=== PATIENT | female | born 1940 | race Caucasian/White ===

== ENCOUNTER 2020-01-31 16:16 | Inpatient (IN) | payer OTHER ==
[~2020-01-31] VITALS: Ht 152.4 cm; Wt 68.9 kg
[2020-01-31] MEDS ORDERED: DexAMETHasone SOD PHOS 10MG/1ML VIAL INJ IV ONE (16:45)
[2020-01-31 18:28] LABS: Monocytes # (auto) 0.1 10 ^3/uL (0-1.3)
[2020-01-31 18:30] LABS: Basophils # (auto) 0.2 10 ^3/uL (0-0.2); Basophils % (auto) 1.9 % (0.0-2.0); Eosinophils # (auto) 0.1 10 ^3/uL (0-0.8); Eosinophils % (auto) 1.1 % (0.0-7.0); Hematocrit 45.3 % (36.0-46.0); Hemoglobin 14.3 g/dL (12.2-16.2); Lymphocytes # (auto) 0.3 10 ^3/uL (0.4-5.4); Lymphocytes % (auto) 2.9 % (10.0-50.0); Mean Corpuscular Hemoglobin 38.1 pg (28.0-32.0); Mean Corpuscular Hgb Conc. 31.5 g/dL (32.0-36.0); Mean Corpuscular Volume 120.7 fL (80.0-100.0); Monocytes % (auto) 0.8 % (0.0-12.0); Neutrophils # (auto) 11.2 10 ^3/uL (1.6-8.6); Neutrophils % (auto) 93.3 % (37.0-80.0); Nucleated Red Blood Cells % 0.4 %; Platelet Count (auto) 173 10^3/uL (140-450); Red Blood Cells 3.75 10^6/uL (4.0-5.20)
[2020-01-31] MEDS ORDERED: ACETAMINOPHEN 325 MG TAB PO PRN (18:30)
[2020-01-31] MEDS ORDERED: ALBUTEROL SULF 2.5 MG/0.5ML(0.5%) NEB SOLN NEB PRN (18:30)
[2020-01-31] MEDS ORDERED: NITROGLYCERIN 0.4 MG SL TAB SL PRN (18:30)
[2020-01-31] MEDS ORDERED: HYDROcodone-ACET 5/325MG TAB PO PRN (18:30)
[2020-01-31] MEDS ORDERED: IPRATROPIUM BROM 0.5 MG/2.5ML INH SOL NEB PRN (18:30)
[2020-01-31] MEDS ORDERED: DOCUSATE SOD 100 MG CAP PO PRN (18:30)
[2020-01-31 18:32] LABS: Red Cell Distribution Width 22.4 % (11.8-14.3)
[2020-01-31 18:46] LABS: Albumin 2.8 g/dL (3.4-5.0); Anion Gap 6 (5-15); Blood Urea Nitrogen 14 mg/dL (7-18); Carbon Dioxide 22 mmol/L (21-32); Chloride 111 mmol/L (98-107); Glucose 79 mg/dL (74-106); Potassium 3.6 mmol/L (3.5-5.1); Sodium 139 mmol/L (136-145)
[2020-01-31 18:52] LABS: Alanine Aminotransferase 14 U/L (13-56); Alkaline Phosphatase 129 U/L (45-117); Aspartate Aminotransferase 26 U/L (15-37); BUN/Creatinine Ratio 20.9; Bilirubin, Total 1.4 mg/dL (0.2-1.0); CRP High Sensitivity 0.56 mg/dL (< 0.3); GFR African American 109 mL/min; GFR Non-African American 90 mL/min; Total Protein 6.7 g/dL (6.4-8.2)
--- NOTE | 2020-01-31 20:40 | NUR ---
pt arrived to unit via gurney, ambulated to bed with max assistance. alert and oriented x 3 able to answer all questions appropriately, no s/s of distress although pulse was elevated after ambulation bt went down with rest.
[2020-01-31 20:45] VITALS: BP 136/90
[2020-01-31 22:00] VITALS: BP 138/90
[2020-02-01 01:09] VITALS: BP 136/90
[2020-02-01 05:00] VITALS: BP 144/67
[2020-02-01 06:31] LABS: Mean Corpuscular Hemoglobin 37.9 pg (28.0-32.0); White Blood Cell 12.3 10^3/uL (4.4-10.8)
[2020-02-01 06:34] LABS: Hematocrit 40.9 % (36.0-46.0); Hemoglobin 13.1 g/dL (12.2-16.2); Mean Corpuscular Hgb Conc. 32.1 g/dL (32.0-36.0); Mean Corpuscular Volume 118.1 fL (80.0-100.0); Platelet Count (auto) 172 10^3/uL (140-450); Red Blood Cells 3.46 10^6/uL (4.0-5.20)
[2020-02-01 06:49] LABS: Potassium 3.8 mmol/L (3.5-5.1)
[2020-02-01 06:52] LABS: Basophils % (manual) 0 (0.0-2.0); Blast Cells 0; Metamyelocytes % 0; Myelocytes % 0; Promyelocytes % 0; Reactive Lymphocytes 0
[2020-02-01 07:04] LABS: BUN/Creatinine Ratio 23.5; Calcium 7.9 mg/dL (8.5-10.1)
--- NOTE | 2020-02-01 07:10 | NUR ---
Respiratory note: Assessed pt for prn medneb tx. HR 70, RR 16, SPO2 94% on 3lpm nasal cannula. Breath sounds clear/dim. Pt denies SOB at this time, no s/s of distress. Medneb tx not indicated at this time. Advised pt to call for RT if needed, pt verbalized understanding.
[2020-02-01 07:15] LABS: Band Neutrophils % (manual) 1; Eosinophils % (manual) 1 (0-7); Lymphocytes % (manual) 1 (10.0-50.0); Monocytes % (manual) 2 (0-12)
--- NOTE | 2020-02-01 07:40 | NUR ---
SHIFT OPENING NOTE RECEIVED PATIENT LYING IN BED COMFORTABLY SLEEPING BUT EASILY AWAKENED. NO C/O PAIN/ DISCOMFORT VOICED BY PATIENT AT THIS TIME. SHIFT ASSESSMENT DONE AND CHARTED. PLAN OF CARE, MEDICATIONS AND TREATMENTS DISCUSSED WITH PATIENT AND SHE VERBALIZED UNDERSTANDING. WILL CONTINUE TO MONITOR PATIENT.
[2020-02-01 09:00] VITALS: BP 145/77
[2020-02-01] MEDS: FUROSEMIDE 40 MG/4 ML VIAL IV SCH (10:00)
[2020-02-01] MEDS ORDERED: methylPREDNISolone SOD SUCC 125 MG/2 ML VL IV SCH (10:00)
--- NOTE | 2020-02-01 12:00 | NUR ---
WOUND CARE NOTE: IN TO SEE PATIENT AT THIS TIME PER WOUND CARE CONSULT REQUEST. PATIENT RECENTLY ADMITTED TO [facility] WITH DIAGNOSIS OF ACUTE RESPIRATORY DISTRESS, HX OF CHF. PATIENT HAS CURRENT CORINE SCORE OF 20. SHE CAN SELF TURN/REPOSITION SELF. PATIENT STATES THAT SHE SEES AN LUBBOCK EXHAUST MACHINE OPERATOR FOR HER WOUNDS, AND RECEIVES HOME HEALTH CARE DRESSING CHANGES. SHE CANNOT REMEMBER THE NAME OF HER EXHAUST MACHINE OPERATOR, BUT RECENTLY, HE AMPUTATED HER RIGHT # 1 TOE, AND PROVIDED SURGERY TO R MEDIAL ANKLE. RIGHT LATERAL ANKLE HAS LARGE VENOUS STASIS ULCER NOTED, COVERED WITH YELLOW FIBRIN SLOUGH. THERE ARE SUTURES NOTED TO RIGHT # 1 TOE AMPUTATION SITE, AND MEDIAL ANKLE SITE. ALL WOUNDS HAVE SOME NECROSIS. WOUND PHOTOS TAKEN FOR REFERENCE, DRESSINGS APPLIED, CONSISTING OF THERAHONEY, OPTIFOAM GENTLE DRESSINGS. PATIENT ALSO NOTED TO HAVE MILD INTERTRIGINOUS RASH NOTED TO PERINEUM. ANTIFUNGAL CLEAR OINTMENT APPLIED. RECOMMEND: EOD/PRN DRESSING CHANGE TO RIGHT FOOT/ANKLE WOUNDS, BID/PRN APPLICATION WITH ANTIFUNGAL CLEAR OINTMENT, SKIN/WOUND CARE PLAN, DIETARY CONSULT FOR WOUNDS, CONTINUED MONITORING BY WOUND CARE TEAM. PATIENT TO SEE HER EXHAUST MACHINE OPERATOR OUTPATIENT POST DISCHARGE. Addendum: 02/01/20 at 1912 by Marisela Banks RN Amended: Links added.
[2020-02-01 13:00] VITALS: BP 134/83
[2020-02-01] MEDS ORDERED: VANCOMYCIN PER PHARMACY 0 MG IV SCH (14:00)
[2020-02-01] MEDS ORDERED: VANCOMYCIN 1GM/250ML 250 ML IV ONE (14:00)
[2020-02-01] MEDS ORDERED: IOHEXOL 350 MG/ML 100ML IJ ONE (14:12)
[2020-02-01] MEDS ORDERED: ENOXAPARIN SOD 60 MG/0.6 ML SYRINGE SC ONE (14:15)
--- NOTE | 2020-02-01 14:30 | NUR ---
MD AT BEDSIDE DR. Varun SAENZ WAS IN TO SEE PATIENT AND MD LEFT NEW ORDERS.
[2020-02-01] MEDS ORDERED: ALEN1TAB32 PO (14:46)
[2020-02-01] MEDS ORDERED: LEVO75TA6 PO (14:46)
[2020-02-01] MEDS ORDERED: PRAV20TA3 PO (14:46)
[2020-02-01] MEDS ORDERED: DIGO0.12 PO (14:46)
[2020-02-01] MEDS ORDERED: FERR-20 PO (14:46)
[2020-02-01] MEDS ORDERED: POM PO (14:48)
[2020-02-01] MEDS ORDERED: VANCOMYCIN 750mg/250ml 250 ML IV SCH (15:00)
--- NOTE | 2020-02-01 15:30 | NUR ---
PHONED DR. FARIAS'S OFFICE BUT UNABLE TO CONTACT HIS OFFICE TO LEAVE A MESSAGE.
--- NOTE | 2020-02-01 15:35 | NUR ---
Dr. Feliz was in but patient in MRI at the time.
[2020-02-01] MEDS: POTASSIUM CHL 20 Meq TABLET PO SCH (16:51)
[2020-02-01 17:00] VITALS: BP 136/74
[2020-02-01 18:00] LABS: INR 3.09 (0.9-1.15); Partial Thromboplastin Time 36.7 sec (23.64-32.05)
--- NOTE | 2020-02-01 18:47 | NUR ---
RT NOTE PT WAS SEEN BY RT FOR PRN HHN TX. HR 69, RR 16, BS CLEAR/DIM, POX 96% ON 1L NASAL CANNULA. NO PRN TX INDICATED AT THIS TIME. CONT ORDERED Addendum: 02/01/20 at 1952 by Mare Bejarano RT Amended: Links added.
[2020-02-01] MEDS ORDERED: phytonadione 5 MG in SODIUM CHL 0.9% 50 ML IV ONE (21:00)
--- NOTE | 2020-02-01 21:00 | NUR ---
spoke with Dr. Diaz who wanted update on pt labs r/t possible angiogram in am. pt placed npo status after midnight, vit k 5mg iv, and am pt/inr lab draw ordered per MD request. Dr. Diaz states he will be in to talk to pt about procedure before consent prepared. Pt is aware that he will be in. Also paged Dr. Briscoe r/t continuation of pt home meds. per am nurse. awaiting to call to confirm before writing orders.
[2020-02-01 21:59] VITALS: BP 145/87
[2020-02-01] MEDS: CEFEPIME 1 GM in SODIUM CHL 0.9% 50 ML IV SCH (22:24)
[2020-02-02] VITALS (37 sets, daily range): BP systolic 76–149; BP diastolic 42–94
[2020-02-02 05:54] LABS: Eosinophils # (auto) 0.1 10 ^3/uL (0-0.8); Eosinophils % (auto) 0.6 % (0.0-7.0); Monocytes # (auto) 0.3 10 ^3/uL (0-1.3); Neutrophils # (auto) 12.4 10 ^3/uL (1.6-8.6)
[2020-02-02 05:56] LABS: Basophils # (auto) 0.1 10 ^3/uL (0-0.2); Basophils % (auto) 0.7 % (0.0-2.0); Hematocrit 42.7 % (36.0-46.0); Hemoglobin 13.7 g/dL (12.2-16.2); Lymphocytes # (auto) 0.4 10 ^3/uL (0.4-5.4); Lymphocytes % (auto) 2.7 % (10.0-50.0); Mean Corpuscular Hemoglobin 37.7 pg (28.0-32.0); Mean Corpuscular Volume 117.8 fL (80.0-100.0); Platelet Count (auto) 173 10^3/uL (140-450); Red Blood Cells 3.63 10^6/uL (4.0-5.20); White Blood Cell 13.2 10^3/uL (4.4-10.8)
[2020-02-02 06:09] LABS: INR 1.62 (0.9-1.15)
[2020-02-02 06:11] LABS: BUN/Creatinine Ratio 28.6; Potassium 3.5 mmol/L (3.5-5.1)
--- NOTE | 2020-02-02 07:30 | NUR ---
Opening Shift Note Assumed care of patient, awake and alert. No S/S of distress/SOB or pain. Instructed on POC and to call for assist PRN, will continue to monitor for changes Q1hr and PRN.
[2020-02-02] MEDS ORDERED: PANTOPRAZOLE 40 MG TAB PO SCH (10:00)
[2020-02-02] MEDS: CEFEPIME 1 GM in SODIUM CHL 0.9% 50 ML IV SCH ×2 (10:09→22:17)
[2020-02-02] MEDS: FUROSEMIDE 40 MG/4 ML VIAL IV SCH (10:11)
[2020-02-02] MEDS: POTASSIUM CHL 20 Meq TABLET PO SCH (10:11)
[2020-02-02 11:28] LABS: INR 1.36 (0.9-1.15)
--- NOTE | 2020-02-02 12:38 | NUR ---
Nutrition Consult/assessment Notes please see attached link for complete assessment Est Energy needs BW 56 [id number] kcals (25-30kcal/kgBW), Est Protein needs: 56-72 gms/day (1.0-1.3gm/kgBW r/t wounds). Will continue to monitor and reassess prn. Addendum: 02/02/20 at [address] Amended: Links added.
--- NOTE | 2020-02-02 13:08 | NUR ---
IV insertion IV access obtained, via clean sterile technique by inserting 22 gauge catheter at right forearm after 1 attempt. IV secured properly. No trauma to site. Patient tolerated well. Original iv was dislodged by patient on accident. catheter is intact and bleeding has stopped.
--- NOTE | 2020-02-02 13:20 | NUR ---
Patient off unit to supervisor laboratory animal facility. patient is relaxed and calm. no pain reported.
[2020-02-02] MEDS ORDERED: IODIXANOL 320MG/ML 100ML BTL IV ONE (13:56)
[2020-02-02] MEDS ORDERED: LIDOCAINE 2%HCL (LOCAL ANESTH.) INJ 20ML MDV ONE ×2 (13:56→19:39)
[2020-02-02] MEDS ORDERED: MIDAZOLAM HCL 1MG/1ML-2 ML VIAL ONE (14:15)
[2020-02-02] MEDS ORDERED: ANGIOMAX 250 MG VIAL IV ONE (14:15)
[2020-02-02] MEDS ORDERED: SODIUM CHL 0.9% 0 ML ONE (14:15)
[2020-02-02] MEDS ORDERED: HEPARIN SODIUM (PORCINE) 5000 UNITS/ML 1ML VIAL ONE (14:16)
[2020-02-02] MEDS ORDERED: fentaNYL CITRATE 100 MCG/2 ML VL ONE (14:16)
[2020-02-02] MEDS ORDERED: VERAPAMIL 2.5MG/ML INJ 2ML VIAL IV ONE (14:16)
[2020-02-02] MEDS ORDERED: diphenhdrAMINE HCL 50 MG/1 ML VL ONE (14:22)
[2020-02-02] MEDS ORDERED: HYDROmorphone HCL 2 MG/ML VL ONE (14:46)
[2020-02-02] MEDS ORDERED: NOREPINEPHRINE 8 MG/250ML KIT 250 ML IV ONE (14:53)
[2020-02-02] MEDS ORDERED: DOPamine 1600MCG/ML D5W 0 ML IV ONE (14:53)
[2020-02-02] MEDS ORDERED: EPINEPHrine HCL 1 MG/10 ML SYRG ONE (14:59)
[2020-02-02] MEDS ORDERED: IOHEXOL 350 MG/ML 100ML IJ ONE (15:07)
--- NOTE | 2020-02-02 15:50 | NUR ---
report given to [facility] in the lab[facility] egg producing farm. patient is being transferred to ICU for observation.
[2020-02-02 16:00] LABS: Hematocrit 40.4 % (36.0-46.0); Hemoglobin 12.8 g/dL (12.2-16.2); Mean Corpuscular Hgb Conc. 31.7 g/dL (32.0-36.0)
[2020-02-02] MEDS: ONDANSETRON HCL 4 MG/2 ML VIAL IV PRN ×3 (16:00→23:15)
[2020-02-02 16:01] LABS: Mean Corpuscular Hemoglobin 37.2 pg (28.0-32.0); Mean Corpuscular Volume 117.3 fL (80.0-100.0); Platelet Count (auto) 320 10^3/uL (140-450); Red Blood Cells 3.44 10^6/uL (4.0-5.20); White Blood Cell 25.4 10^3/uL (4.4-10.8)
[2020-02-02 16:03] LABS: Band Neutrophils % (manual) 0; Basophils % (manual) 0 (0.0-2.0); Blast Cells 0; Metamyelocytes % 0; Myelocytes % 0; Promyelocytes % 0; Reactive Lymphocytes 0; Red Cell Distribution Width 21.7 % (11.8-14.3)
[2020-02-02] MEDS ORDERED: DIGOXIN (250MCG/ML) 2 ML AMPULE IV ONE (16:15)
[2020-02-02 16:21] LABS: BUN/Creatinine Ratio 21.2; Calcium 7.3 mg/dL (8.5-10.1); Potassium 3.2 mmol/L (3.5-5.1)
[2020-02-02] MEDS ORDERED: PHENYLEPHRINE IV 250 ML IV ONE (16:38)
[2020-02-02] MEDS ORDERED: ETOMIDATE (2MG/ML) 20ML VIAL IV ONE (16:50)
[2020-02-02] MEDS ORDERED: SUCCINYLCHOLINE CHLORIDE 20 MG/ML 10ML VIAL IV ONE (16:50)
--- NOTE | 2020-02-02 16:55 | NUR ---
INTUBATED IN ONLINE TUTOR ICU PT INTUBATED BY SOFT SUGAR OPERATOR HEAD STUDENT WITH DR. MA AT BEDSIDE. INTUBATED WITH ETT 8.0 AT 22CM, SECURED WITH HOLISTER. PLACED ON CARESCAPE VENT V18 PLUGGED INTO RED OUTLET, ON SETTINGS: AC, RR 14, VT 400, PEEP +5, FIO2 30%. ALARMS SET AND AUDIBLE. PT SEDATED, TOLERATING VENT WELL, NO S/S OF DISTRESS. RN AT BEDSIDE. WILL ENDORSE PT CARE TO NOC SHIFT RT.
[2020-02-02] MEDS: NOREPINEPHRINE 8 MG/250ML KIT 250 ML IV SCH (16:58)
[2020-02-02] MEDS ORDERED: PROPOFOL 10 MG/ML 20 ML IV ONE (17:15)
[2020-02-02] MEDS ORDERED: PROPOFOL 100 ML IV ONE (17:55)
[2020-02-02] MEDS ORDERED: PIPERACILLIN-TAZOB 2.25GM 50 ML IV ONE (18:00)
[2020-02-02 18:18] LABS: Eosinophils % (manual) 1 (0-7); Lymphocytes % (manual) 3 (10.0-50.0); Monocytes % (manual) 3 (0-12)
--- NOTE | 2020-02-02 18:27 | NUR ---
PATIENT ARRIVED FROM TUNG NUT GROWER, INTUBATED, RECEIVING 2ND UNIT OF PRBC AND 2 VASOPRESSORS INFUSING THROUGH LEFT TLC GROIN CONNECTED TO BEDSIDE MONITOR AND BEDSIDE VENTILATOR. PATIENT DUSKY IN COLOR, INCREASED SEDATION PATIENT REACHING FOR ET TUBE.
--- NOTE | 2020-02-02 19:15 | NUR ---
DR. FARIAS AT BEDSIDE - ORDERS FOR 1 MORE UNIT PRBC
[2020-02-02] MEDS: PHENYLEPHRINE IV 250 ML IV SCH ×2 (19:25→21:58)
[2020-02-02] MEDS: POTASSIUM CHL 20MEQ/100ML 100 ML IV SCH ×2 (19:30→21:49)
--- NOTE | 2020-02-02 19:40 | NUR ---
DR. SAENZ AT BEDSIDE
--- NOTE | 2020-02-02 19:40 | NUR ---
TRANSFERRED TO [facility] ARCHITECT
--- NOTE | 2020-02-02 19:50 | NUR ---
RT NOTE PT TRANSPORTED TO [facility] FOR PROCEDURE. PT BAGGED DURING TRANSPORT WITHOUT INCIDENT. PT PLACED ON ORE TRIMMER VENT ON SETTINGS OF AC 18, 400, +5 30%. DURING PROCEDURE PT FIO2 WAS TITRATED UP TO 50% DUE TO LOW PERFUSION. WHEN PROCEDURE WAS COMPLETED, PT WAS TRANSPORTED BACK, BAGGED IN ROUTE WITHOUT INCIDENT AND PLACED BACK ON ICU VENT IN ROOM 102. PT FIO2 TITRATED BACK DOWN TO 30%. PT BACK IN ICU 102 ON SAME SETTINGS AT 2115.
--- NOTE | 2020-02-02 19:58 | NUR ---
FAMILY MEETING WITH DR Rachele SAENZ AND PATIENTS SON AND DAUGHTER. FAMILY WANTS INTERVENTIONAL RADIOLOGIST TO PROCEED WITH TRYING TO STOPPING THE BLEEDING. POST PROCEDURE FAMILY DISCUSS MAKING PATIENT A CHEMICAL CODE.
[2020-02-02] MEDS ORDERED: SODIUM BICARBONATE 8.4 % INJ 50ML VIAL IV ONE (20:30)
--- NOTE | 2020-02-02 21:15 | NUR ---
RECEIVED FROM AUTISTIC TEACHER: RIGHT GROIN ANGIO SITE, CDI WITH TEGADERM, NO ECCHYMOSIS, NO HEMATOMA, NO ACTIVE BLEEDING NOTED. REMAINS INTUBATED, AND SEDATED. BLOOD TRANSFUSING. AFIB WITH RVR, HR 140+. SBP 100+ ON JATINDER AND LEVO GTT
--- NOTE | 2020-02-02 21:46 | NUR ---
3RD PRBC FINISHED TRANSFUSING
[2020-02-02] MEDS: PROPOFOL 100 ML IV SCH (21:53)
[2020-02-02] MEDS: VASOPRESSIN 50 UNITS in D5W 5% 247.5 ML IV SCH (21:59)
--- NOTE | 2020-02-02 22:45 | NUR ---
PAGED DR. FARIAS TO NOTIFY ABOUT AFIB WITH RVR
--- NOTE | 2020-02-02 22:45 | NUR ---
ASKED LAB TO DRAW PATIENT D/T DEPENDENCE ON VASOPRESSOR INFUSION
[2020-02-02 23:07] LABS: Hematocrit 41.2 % (36.0-46.0); Mean Corpuscular Hemoglobin 31.4 pg (28.0-32.0); Mean Corpuscular Hgb Conc. 31.5 g/dL (32.0-36.0); Mean Corpuscular Volume 99.7 fL (80.0-100.0); Platelet Count (auto) 246 10^3/uL (140-450); Red Blood Cells 4.13 10^6/uL (4.0-5.20)
--- NOTE | 2020-02-02 23:13 | NUR ---
TEMP 100.3F ORALLY - REMOVED BLANKETS, PLACED COOL WASH RAG ON PATIENT
[2020-02-02 23:16] LABS: Red Cell Distribution Width 30.1 % (11.8-14.3)
[2020-02-02 23:19] LABS: BUN/Creatinine Ratio 17.6; Calcium 7.2 mg/dL (8.5-10.1); Potassium 4.4 mmol/L (3.5-5.1); White Blood Cell 36.4 10^3/uL (4.4-10.8)
[2020-02-02 23:20] LABS: Basophils % (manual) 0 (0.0-2.0); Blast Cells 0; Eosinophils % (manual) 0 (0-7); Promyelocytes % 0; Reactive Lymphocytes 0
--- NOTE | 2020-02-02 23:30 | NUR ---
RIGHT GROIN ANGIO SITE: SITE CDI, TEGADERM INTACT, NO ECCHYMOSIS, NO HEMATOMA, NO ACTIVE BLEEDING NOTED
[2020-02-02 23:31] LABS: INR 1.84 (0.9-1.15)
--- NOTE | 2020-02-02 23:40 | NUR ---
SPOKE WITH DR. GRAVES: NOTIFIED ABOUT LAB RESULTS AND AFIB WITH RVR. ADVISED TO ATTEMPT TO GET AHOLD OF DR. FARIAS, BUT IF NO RETURN CALL MAY START, AMIODARONE PER PROTOCOL. ORDERS READBACK AND VERIFIED.
--- NOTE | 2020-02-02 23:43 | NUR ---
PAGED DR. FARIAS
--- NOTE | 2020-02-02 23:46 | NUR ---
DR GRAVES CALLED [facility]: WHILE WAITING FOR CARDIOLOGY TO CALL BACK, GIVE 0.25 MG DIGOXIN IVP X1 BEFORE STARTING AMIODARONE GTT. ORDERS READBACK AND VERIFIED
[2020-02-02] MEDS ORDERED: DIGOXIN (250MCG/ML) 2 ML AMPULE ONE (23:49)
[2020-02-02 23:52] LABS: Band Neutrophils % (manual) 1; Lymphocytes % (manual) 6 (10.0-50.0); Metamyelocytes % 1; Monocytes % (manual) 2 (0-12); Myelocytes % 1
--- NOTE | 2020-02-02 23:53 | NUR ---
0.25 MG OF DIGOXIN GIVEN IVP - DOSE VERIFIED WITH TAE GOODMAN
[2020-02-03] VITALS (109 sets, daily range): BP systolic 75–134; BP diastolic 42–83
[2020-02-03] MEDS ORDERED: DIGOXIN (250MCG/ML) 2 ML AMPULE IV ONE
[2020-02-03] MEDS ORDERED: AMIODARONE HCL 150 MG in D5W 5% 100 ML IV ONE (00:15)
[2020-02-03] MEDS ORDERED: AMIODARONE 450mg/250ml AE 250 ML IV SCH (00:20)
[2020-02-03] MEDS ORDERED: AMIODARONE 450mg/250ml AE 250 ML IV ONE (00:23)
[2020-02-03] MEDS ORDERED: AMIODARONE HCL (50 MG/ ML) 3 ML VIAL IV ONE (00:23)
--- NOTE | 2020-02-03 00:37 | NUR ---
AMIO BOLUS STARTED - HR REMAINS AFIB WITH RVR UP TO 180
--- NOTE | 2020-02-03 00:53 | NUR ---
AMIO GTT STARTED
--- NOTE | 2020-02-03 01:00 | NUR ---
TEMP 102.5F ORALLY - ICE PACKS APPLIED TO NECK, BILATERAL AXILLA, RIGHT GROIN, AND FAN PLACED OSCILLATING IN ROOM
--- NOTE | 2020-02-03 01:00 | NUR ---
SPOKE WITH DR. FARIAS: ORDERS FOR 2.5 MG IV VITAMIN K. ORDERS READBACK AND VERIFIED
[2020-02-03] MEDS: VANCOMYCIN 750mg/250ml 250 ML IV SCH ×2 (01:06→19:35)
--- NOTE | 2020-02-03 01:13 | NUR ---
RIGHT GROIN ANGIO SITE: TEGADERM INTACT. NO HEMATOMA, NO ECCHYMOSIS, NO ACTIVE BLEEDING NOTED.
--- NOTE | 2020-02-03 01:14 | NUR ---
HR NOW 90-120s, REMAINS AFIB
[2020-02-03] MEDS: PHENYLEPHRINE IV 250 ML IV SCH ×7 (01:20→19:51)
[2020-02-03] MEDS ORDERED: phytonadione 2.5 MG in SODIUM CHL 0.9% 50 ML IV ONE (02:00)
--- NOTE | 2020-02-03 02:01 | NUR ---
TEMP DOWN TO 99.9F ORALLY
[2020-02-03] MEDS ORDERED: phytonadione 1 ML ONE (02:04)
[2020-02-03] MEDS: PROPOFOL 100 ML IV SCH ×2 (02:41→07:07)
--- NOTE | 2020-02-03 03:31 | NUR ---
TEMP REMAINS 100.0F
--- NOTE | 2020-02-03 03:31 | NUR ---
14 FR NGT PLACED TO LEFT NARE: AIR BOLUS VERIFIED BY TAE GOODMAN
[2020-02-03 04:50] LABS: Basophils # (auto) 0.1 10 ^3/uL (0-0.2); Basophils % (auto) 0.4 % (0.0-2.0); Eosinophils # (auto) 0 10 ^3/uL (0-0.8); Eosinophils % (auto) 0.1 % (0.0-7.0); Hematocrit 31.6 % (36.0-46.0); Hemoglobin 10.4 g/dL (12.2-16.2); Lymphocytes % (auto) 4.5 % (10.0-50.0); Mean Corpuscular Hemoglobin 32.6 pg (28.0-32.0); Mean Corpuscular Volume 98.7 fL (80.0-100.0); Monocytes % (auto) 4.4 % (0.0-12.0); Neutrophils # (auto) 21.1 10 ^3/uL (1.6-8.6); Neutrophils % (auto) 90.6 % (37.0-80.0); Nucleated Red Blood Cells % 0.6 %; Platelet Count (auto) 134 10^3/uL (140-450); White Blood Cell 23.3 10^3/uL (4.4-10.8)
[2020-02-03 04:53] LABS: Potassium 4.1 mmol/L (3.5-5.1)
[2020-02-03 04:54] LABS: Red Cell Distribution Width 30.9 % (11.8-14.3)
[2020-02-03 04:58] LABS: BUN/Creatinine Ratio 20.3; Calcium 6.1 mg/dL (8.5-10.1)
--- NOTE | 2020-02-03 05:00 | NUR ---
PARTIAL LINEN CHANGE COMPLETED, PAMELA CARE, STEPHENS CARE, AND ORAL CARE
--- NOTE | 2020-02-03 05:40 | NUR ---
BLOOD PRESSURE DROPPED FROM 100s TO 80s - UNABLE TO TELL IF ABDOMEN IS LARGER OR FIRMER THAN PREVIOUSLY - WILL DRAW STAT CBC TO RECHECK - INCREASED JATINDER GTT AND STARTED LEVO GTT
--- NOTE | 2020-02-03 05:55 | NUR ---
SACRUM ASSESSMENT- BLANCHABLE ERYTHEMA TO SACRUM - PLACED GENTLE OPTIFOAM
--- NOTE | 2020-02-03 06:00 | NUR ---
AMIODARONE STOPPED - HR 60s
[2020-02-03 06:10] LABS: Hemoglobin 10.2 g/dL (12.2-16.2); Mean Corpuscular Hemoglobin 31.8 pg (28.0-32.0); Mean Corpuscular Hgb Conc. 31.9 g/dL (32.0-36.0); Mean Corpuscular Volume 99.7 fL (80.0-100.0); Platelet Count (auto) 159 10^3/uL (140-450); Red Blood Cells 3.21 10^6/uL (4.0-5.20)
[2020-02-03 06:13] LABS: Red Cell Distribution Width 31.2 % (11.8-14.3)
[2020-02-03 06:15] LABS: Basophils % (manual) 0 (0.0-2.0); Blast Cells 0; Eosinophils % (manual) 0 (0-7); Metamyelocytes % 0; Myelocytes % 0; Promyelocytes % 0; Reactive Lymphocytes 0
[2020-02-03] MEDS: AMIODARONE 450mg/250ml AE 250 ML IV SCH ×2 (06:20→21:20)
[2020-02-03 06:29] LABS: Band Neutrophils % (manual) 1; Lymphocytes % (manual) 4 (10.0-50.0); Monocytes % (manual) 1 (0-12)
--- NOTE | 2020-02-03 06:29 | NUR ---
BLOOD PRESSURE STABILIZING AT THIS TIME
[2020-02-03 07:24] LABS: INR 1.67 (0.9-1.15); Partial Thromboplastin Time 35.8 sec (23.0-31.2)
--- NOTE | 2020-02-03 07:44 | NUR ---
REPORT AND CARE ENDORSED TO TAE SAM
--- NOTE | 2020-02-03 07:45 | NUR ---
REPORT RECEIVED ASSUMING CARE, PATIENT LYING IN BED INTUBATED/SEDATED VS STABLE
[2020-02-03] MEDS: POTASSIUM CHL 20 Meq TABLET PO SCH (10:00)
[2020-02-03] MEDS ORDERED: FUROSEMIDE 20 MG/2 ML VIAL IV ONE (10:00)
--- NOTE | 2020-02-03 10:15 | NUR ---
TEMP 100.2 RECTALLY, COOLING MEASURES PROVIDED
[2020-02-03] MEDS: CEFEPIME 1 GM in SODIUM CHL 0.9% 50 ML IV SCH ×2 (10:27→21:49)
[2020-02-03] MEDS: PANTOPRAZOLE 40 MG/10 ML VIAL INJ IV SCH (10:34)
--- NOTE | 2020-02-03 10:44 | NUR ---
JUANIX GIVEN PER DR FARIAS COMMUNICATION ORDER FOR 20 MG IVP ONCE FOR UOP LESS THAN 40 X 2 HRS. Addendum: 02/03/20 at 1302 by Balta Saravia RN LESS THAN 40 PER HOUR X 2 HRS
--- NOTE | 2020-02-03 12:27 | NUR ---
Nutrition Assessment/Consult Notes Please refer to link for full assessment notes. Est Energy needs: 5207-0013 (25-30 kcal/kgBW) d/t pt respiratory distress Est Protein needs: 71-95 gms/day (1.2-1.6 gm/kgBW) d/t pt respiratory distress Will continue to monitor and reassess prn. Addendum: 02/03/20 at [address] Amended: Links added.
--- NOTE | 2020-02-03 12:54 | NUR ---
DR FARIAS AT BEDSIDE, DR CORDERO RN GAVE LASIX PER HIS COMMUNICATION ORDER AND AWARE OF URINE OUTPUT. ASSESSED PATIENT AND SPOKE WITH DAUGHTER JESS ON PHONE REGARDING PATIENT CONDITION.
--- NOTE | 2020-02-03 12:55 | NUR ---
PROTONIX CHANGED TO IV PER PROTOCOL FROM PO DUE TO INABILITY TO CRUSH PROTONIX PILL DUE TO EXTENDED RELEASE
[2020-02-03] MEDS ORDERED: PROPOFOL 100 ML IV SCH (13:45)
[2020-02-03 18:46] LABS: Hematocrit 29.1 % (36.0-46.0); Hemoglobin 9.5 g/dL (12.2-16.2); Mean Corpuscular Hemoglobin 32.5 pg (28.0-32.0); Mean Corpuscular Hgb Conc. 32.6 g/dL (32.0-36.0); Mean Corpuscular Volume 99.7 fL (80.0-100.0); Platelet Count (auto) 158 10^3/uL (140-450); Red Blood Cells 2.92 10^6/uL (4.0-5.20); White Blood Cell 25.4 10^3/uL (4.4-10.8)
[2020-02-03 18:49] LABS: Red Cell Distribution Width 31.3 % (11.8-14.3)
[2020-02-03 18:51] LABS: Basophils % (manual) 0 (0.0-2.0); Blast Cells 0; Eosinophils % (manual) 0 (0-7); Metamyelocytes % 0; Myelocytes % 0; Promyelocytes % 0; Reactive Lymphocytes 0
[2020-02-03 19:11] LABS: Band Neutrophils % (manual) 1; Lymphocytes % (manual) 2 (10.0-50.0); Monocytes % (manual) 1 (0-12)
--- NOTE | 2020-02-03 19:11 | NUR ---
SPOKE WITH DR FARIAS, DR CORDERO HGB/HCT. DR CORDERO URINE OUTPUT FOR 12 HR SHIFT.
[2020-02-03] MEDS: NOREPINEPHRINE 8 MG/250ML KIT 250 ML IV SCH (19:28)
[2020-02-03] MEDS: VASOPRESSIN 50 UNITS in D5W 5% 247.5 ML IV SCH (19:30)
[2020-02-03] MEDS: FUROSEMIDE 20 MG/2 ML VIAL IV SCH (19:36)
[2020-02-03] MEDS: MIDAZOLAM DRIP 50 mg/50mL 50 ML IV SCH (19:37)
--- NOTE | 2020-02-03 19:45 | NUR ---
TEMP 100.2F - FAN ON OSCILLATING IN ROOM, PACK BEHIND NECK
[2020-02-03 21:17] LABS: Urine WBC None Seen /hpf (0 - 5)
--- NOTE | 2020-02-03 21:30 | NUR ---
TEMP REMAINS REMAINS 100.2F DESPITE COOLING MEASURES - TYLENOL PRN GIVEN
[2020-02-03 21:35] LABS: Urine Bacteria NONE SEEN /hpf (None Seen); Urine Blood Negative /uL (Negative); Urine Specific Gravity 1.009 (1.001-1.035)
--- NOTE | 2020-02-03 21:57 | NUR ---
SPOKE WITH PATIENT'S SON: AFTER PASSWORD VERIFIED, UPDATED ON PATIENT'S STATUS. PER SON, WHEN THE PATIENT SLEEPS AT HOME THEY NOTE THAT SHE HAS UNCONTROLLED MOVEMENTS OF HER LOWER EXTREMITIES THAT ARE SOME TIMES "VIOLENT" AND APPEAR THAT SHE IS RUNNING A MARATHON
--- NOTE | 2020-02-03 22:00 | NUR ---
REMOVED SCDs D/T PATIENT CONSTANTLY MOVING LEGS, AND REPORT FROM SON
[2020-02-03] MEDS: fentaNYL Drip 2500mCg/250mlNS 250 ML IV SCH (22:12)
--- NOTE | 2020-02-03 22:34 | NUR ---
TEMP NOW 99.5F RECTALLY
[2020-02-04] VITALS (104 sets, daily range): BP systolic 85–123; BP diastolic 46–71
[2020-02-04] MEDS: PHENYLEPHRINE IV 250 ML IV SCH ×3 (00:01→09:23)
--- NOTE | 2020-02-04 01:30 | NUR ---
WOUND CARE: RIGHT MEDIAL ANKLE: REMOVED PREVIOUS DRESSING, MINIMAL DRAINAGE. WOUND BED WITH YELLOW SLOUGH, SURROUNDING SKIN ERYTHEMATOUS. SUTURES PRESENT. CLEANSED WITH WOUND CLEANSING SPRAY, PAT DRY WITH STERILE GAUZE, PLACED THERAHONEY GAUZE, AND COVERED WITH OPTIFOAM.SECURED WITH KERLIX AND STRETCH NETTING. RIGHT LATERAL ANKLE: REMOVED PREVIOUS DRESSING, MINIMAL DRAINING, WOUND BED WITH YELLOW SLOUGH AND AREAS OF ESCHAR. CLEANSED WOUND WITH WOUND CLEANSER SPRAY, PAT DRY WITH STERILE GAUZE, APPLIED THERAHONEY GAUZE, COVERED WITH OPTIFOAM. SECURED WITH KERLIX AND STRETCH NETTING. RIGHT PINKY TOE AMPUTATION: REMOVED PREVIOUS DRESSING, MINIMAL DRAINAGE. SUTURES PRESENT BUT WOUND OPEN, WITH SLOUGH AND AREAS OF ESCHAR. WOUND PHOTO TAKEN. CLEANSED WITH WOUND CLEANSER SPRAY, PAT DRY WITH STERILE GAUZE, APPLIED WITH THERAHONEY GAUZE, COVERED WITH TELFA.SECURED WITH KERLIX AND STRETCH NETTING. SACRUM/COCCYX: BLANCHABLE ERYTHEMA TO SACRUM/COCCYX. SKIN INTACT. WOUND PHOTO TAKEN. RE-CONSULTED WOUND CARE. PLACED GENTLE OPTIFOAM. PATIENT TOLERATED WOUND CARE WELL, DOES TEND TO PULL RIGHT FOOT INTO CENTER. NO SOURAV BOOTS AVAILABLE. WILL ATTEMPT TO FLOAT HEEL/FOOT OFF OF BED.
--- NOTE | 2020-02-04 02:11 | NUR ---
BED BATH WITH CHG WIPES, PAMELA CARE, STEPHENS CARE, ORAL CARE, AND PARTIAL LINEN CHANGE COMPLETED
[2020-02-04] MEDS: FUROSEMIDE 20 MG/2 ML VIAL IV SCH ×2 (04:16→17:58)
[2020-02-04 04:57] LABS: BUN/Creatinine Ratio 27.7; Calcium 6.1 mg/dL (8.5-10.1); Magnesium 1.8 mg/dL (1.6-2.6); Potassium 3.7 mmol/L (3.5-5.1)
[2020-02-04 04:59] LABS: Hematocrit 27.5 % (36.0-46.0); Hemoglobin 8.6 g/dL (12.2-16.2); Mean Corpuscular Hemoglobin 31.4 pg (28.0-32.0); Mean Corpuscular Hgb Conc. 31.5 g/dL (32.0-36.0); Platelet Count (auto) 143 10^3/uL (140-450); Red Blood Cells 2.75 10^6/uL (4.0-5.20)
[2020-02-04 05:06] LABS: Band Neutrophils % (manual) 0; Basophils % (manual) 0 (0.0-2.0); Blast Cells 0; Metamyelocytes % 0; Myelocytes % 0; Promyelocytes % 0; Reactive Lymphocytes 0; Red Cell Distribution Width 31.6 % (11.8-14.3)
[2020-02-04] MEDS: POTASSIUM CHL 20MEQ/100ML 100 ML IV PRN ×2 (05:20→06:19)
--- NOTE | 2020-02-04 05:21 | NUR ---
POTASSIUM 3.7 - WILL GIVE 40 MEQ KCL IVPB
--- NOTE | 2020-02-04 05:21 | NUR ---
MAGNESIUM 1.8 - WILL ENDORSE TO DAY SHIFT TO GIVE 3 GM MAGNESIUM IVPB
--- NOTE | 2020-02-04 05:24 | NUR ---
SPOKE WITH PATIENT'S DAUGHTER: AFTER PASSWORD VERIFIED, UPDATED ON PATIENT'S STATUS. ANSWERED ALL QUESTIONS ABLE
[2020-02-04 05:30] LABS: Eosinophils % (manual) 2 (0-7); Lymphocytes % (manual) 2 (10.0-50.0); Monocytes % (manual) 3 (0-12)
--- NOTE | 2020-02-04 07:30 | NUR ---
REPORT RECEIVED FROM SACK SEWER MACHINE NURSE. PATIENT RESTING IN BED AT THIS TIME. RESPIRATIONS EVEN AND UNLABORED, INTUBATED AND SEDATED. BED IN LOW POSITION, WILL CONTINUE TO MONITOR.
[2020-02-04] MEDS: MAGNESIUM SULFATE 1GM/100ML 100 ML IV PRN ×3 (07:37→10:59)
--- NOTE | 2020-02-04 08:31 | NUR ---
SPOKE TO DR MACHADO VIA PHONE AND UPDATED ON PATIENT STATUS. NO NEW ORDERS AT THIS TIME.
[2020-02-04] MEDS: POTASSIUM EFFERVESENT TAB 25 MEQ GT SCH (10:15)
[2020-02-04] MEDS: PANTOPRAZOLE 40 MG/10 ML VIAL INJ IV SCH (10:15)
[2020-02-04] MEDS: CEFEPIME 1 GM in SODIUM CHL 0.9% 50 ML IV SCH ×2 (10:15→21:14)
[2020-02-04] MEDS ORDERED: phytonadione 10 MG in SODIUM CHL 0.9% 50 ML IV ONE (10:30)
--- NOTE | 2020-02-04 10:37 | NUR ---
DR FARIAS AT BEDSIDE TO ASSESS PATIENT AND DISCUSS PLAN OF CARE. MD UPDATED PATIENTS DAUGHTER ON PATIENT STATUS AND PLAN OF CARE. ALL ORDERS NOTED IN CHART.
[2020-02-04] MEDS ORDERED: CALCIUM GLUC 4.65meq/50ml D5AE 50 ML IV ONE (11:45)
[2020-02-04] MEDS: MAGNESIUM SULFATE 1GM/100ML 100 ML IV SCH ×2 (12:00→13:00)
--- NOTE | 2020-02-04 12:00 | NUR ---
WOUND CARE NOTE: PATIENT IS NOW IN ICU. SHE IS INTUBATED, SEDATED. PATIENT IS INTUBATED, SEDATED. SHE HAS CURRENT CORINE SCORE OF 10. PATIENT WOULD BENEFIT FROM SPECIALTY AIR MATTRESS. ORDERED SPECIALTY AIR MATTRESS. PATIENT TO BE PLACED, PENDING DELIVERY BY SANDRA ARMENTA. PATIENT CONTINUES TO HAVE HER WOUNDS TO RIGHT FOOT AND MASD TO PERINEUM TO SACRUM. RECOMMEND: P500 AIR MATTRESS CONTINUATION OF ALL WOUND CARE ORDERS PREVIOUSLY PRESCRIBED BY . WOUND CARE TEAM WILL CONTINUE TO MONITOR.
[2020-02-04] MEDS ORDERED: PHENYLEPHRINE IV 250 ML IV ONE (12:11)
[2020-02-04] MEDS ORDERED: PHENYLEPHRINE HCL 10 MG/ML VL ONE (12:11)
[2020-02-04] MEDS: AMIODARONE 450mg/250ml AE 250 ML IV SCH (12:20)
[2020-02-04] MEDS: PHENYLEPHRINE INJ 40 MG in SODIUM CHL 0.9% 250 ML IV SCH ×2 (12:29→17:53)
[2020-02-04] MEDS: VANCOMYCIN 750mg/250ml 250 ML IV SCH (13:51)
[2020-02-04] MEDS: MIDAZOLAM DRIP 50 mg/50mL 50 ML IV SCH (13:52)
--- NOTE | 2020-02-04 15:30 | NUR ---
DR SERNA AT BEDSIDE TO ASSESS PATIENT AND DISCUSS PLAN OF CARE. PER CPAP IN AM. ALL ORDERS NOTED IN CHART.
[2020-02-04] MEDS: NOREPINEPHRINE 8 MG/250ML KIT 250 ML IV SCH (16:58)
--- NOTE | 2020-02-04 17:00 | NUR ---
DR Rachele PALMER AT BEDSIDE TO ASSESS PATIENT AND DISCUSS PLAN OF CARE. ALL ORDERS NOTED IN CHART. PER MD WANTS DR ALEJANDRE TO EVALUATE PATIENT TOMORROW. WILL INFORM SENIOR BENEFITS ANALYST TO PASS ON TO DAY SHIFT.
[2020-02-04] MEDS: fentaNYL Drip 2500mCg/250mlNS 250 ML IV SCH (17:18)
[2020-02-04] MEDS: CALCIUM W/VIT D (600MG/400IU) TAB PO SCH (17:58)
[2020-02-04] MEDS: VASOPRESSIN 50 UNITS in D5W 5% 247.5 ML IV SCH (18:15)
[2020-02-04 18:23] LABS: Magnesium 2.6 mg/dL (1.6-2.6); Potassium 5.2 mmol/L (3.5-5.1)
--- NOTE | 2020-02-04 18:30 | NUR ---
PATIENT PLACED IN AIR MATTRESS
--- NOTE | 2020-02-04 19:00 | NUR ---
Opening shift note: Report received on patient. Pt intubated ETT 8.0/ 22cm @ LL, VENT settings: AC 18/ TV 400/ FIO2 30/ PEEP 5, O2 SAT 97%, bilateral lungs clear and diminished. Central line infusing Versed, Fent, and JATINDER. NGT clamped, placement checked. Douglass catheter draining via gravity with yellow urine. Temp probe in place. Safety precautions in place. Will continue to monitor.
--- NOTE | 2020-02-04 20:30 | NUR ---
Family: Family called for update on patient condition. RN updated family. All questions and concerns answered.
[2020-02-05] VITALS (85 sets, daily range): BP systolic 76–145; BP diastolic 46–85
[2020-02-05] MEDS: AMIODARONE 450mg/250ml AE 250 ML IV SCH (03:20)
[2020-02-05] MEDS: FUROSEMIDE 20 MG/2 ML VIAL IV SCH ×2 (05:31→17:18)
[2020-02-05 05:54] LABS: Anion Gap 7 (5-15); Blood Urea Nitrogen 16 mg/dL (7-18); Calcium 6.5 mg/dL (8.5-10.1); Carbon Dioxide 21 mmol/L (21-32); Chloride 109 mmol/L (98-107); GFR African American 153 mL/min; GFR Non-African American 126 mL/min; Glucose 59 mg/dL (74-106); Potassium 5.4 mmol/L (3.5-5.1); Sodium 137 mmol/L (136-145)
[2020-02-05] MEDS: VANCOMYCIN 750mg/250ml 250 ML IV SCH ×2 (06:30→19:00)
[2020-02-05 06:49] LABS: Hematocrit 30.3 % (36.0-46.0); Hemoglobin 9.7 g/dL (12.2-16.2); Mean Corpuscular Hemoglobin 32.2 pg (28.0-32.0); Mean Corpuscular Hgb Conc. 32.1 g/dL (32.0-36.0); Mean Corpuscular Volume 100.3 fL (80.0-100.0); Platelet Count (auto) 136 10^3/uL (140-450); Red Blood Cells 3.02 10^6/uL (4.0-5.20); Red Cell Distribution Width 30.9 % (11.8-14.3)
[2020-02-05 07:01] LABS: White Blood Cell 35.7 10^3/uL (4.4-10.8)
[2020-02-05 07:02] LABS: Band Neutrophils % (manual) 0; Basophils % (manual) 0 (0.0-2.0); Eosinophils % (manual) 0 (0-7); Metamyelocytes % 0
[2020-02-05 07:03] LABS: Blast Cells 0; Myelocytes % 0; Promyelocytes % 0; Reactive Lymphocytes 0
[2020-02-05 07:12] LABS: INR 1.08 (0.9-1.15)
[2020-02-05 07:40] LABS: Lymphocytes % (manual) 2 (10.0-50.0); Monocytes % (manual) 3 (0-12)
--- NOTE | 2020-02-05 08:45 | NUR ---
DR FARIAS VISITS DR FARIAS UPDATED ON PATIENT'S STATUS, CURRENT DRIPS, MORNING LABS AND PENDING SURGICAL CONSULT AND CPAP TRIAL. DR FARIAS VERBALIZED UNDERSTANDING AND ORDERED POTASSIUM PO TO BE HELD AND AGREED WITH CALLING DR ALEJANDRE PRIOR TO CPAP TRIAL FOR INPUT. DR FARIAS STATED DR ALEJANDRE AWARE OF PATIENT'S CASE.
[2020-02-05] MEDS: PHENYLEPHRINE INJ 40 MG in SODIUM CHL 0.9% 250 ML IV SCH ×2 (09:20→17:00)
--- NOTE | 2020-02-05 09:44 | NUR ---
PAGED DR ALEJANDRE TO NOTIFY OF CPAP TRAIL THIS AM AND AUTHORIZATION PRIOR CONSULT, AWAITING RESPONSE.
--- NOTE | 2020-02-05 09:45 | NUR ---
RETURN CALL FROM DR PILI VEE FOR CPAP TRIAL.
--- NOTE | 2020-02-05 09:48 | NUR ---
PAGED DR Varun SAENZ TO UPDATE ON PATIENT'S STATUS, MORNING LABS, CRITICAL WBC AND PENDING CPAP TRIAL, AWAITING RESPONSE.
[2020-02-05] MEDS: POTASSIUM EFFERVESENT TAB 25 MEQ GT SCH (09:59)
[2020-02-05] MEDS: CALCIUM W/VIT D (600MG/400IU) TAB PO SCH ×2 (09:59→17:22)
[2020-02-05] MEDS: PANTOPRAZOLE 40 MG/10 ML VIAL INJ IV SCH (10:00)
[2020-02-05] MEDS: CEFEPIME 1 GM in SODIUM CHL 0.9% 50 ML IV SCH (10:00)
--- NOTE | 2020-02-05 10:52 | NUR ---
RETURN FAMILIES CALL/SEDATION OFF Family of JESS PAGAN updated on patient's status and condition after password verification. All questions and concerns addressed, patient's son Abdi verbalized understanding. Cordless phone placed on patient's ear so that family can speak with her. Sedation off for possible cpap trial today as ordered by MD. No response to family voice, VSS, no distress noted, respirations even and unlabored. Will continue to monitor.
--- NOTE | 2020-02-05 12:15 | NUR ---
PT PLACED ON CPAP AT THIS TIME PER DR SERNA'S ORDERS. PT IS ON PS7, PEEP5, 30% FIO2. PT IS OFF SEDATION AND IS AWAKE AND FOLLOWS COMMANDS. RN RENAY AWARE OF CPAP INITIATED.
--- NOTE | 2020-02-05 12:18 | NUR ---
Nutrition Followup Notes Pt wt is 73.6 kg.Pt is sedated, intubated with no relatives at bedside when rounded this morning. Pt is still NPO with no diet order in place. If pt remains NPO for the next 48 hrs, consider EN nutrition support Osmolite 1.2 @ 60 ml/hr goal rate as tolerated and per MD approval. Will continue to monitor PO status, skin status, pertinent labs and weight trends. Will f/u in 2-3 days. Est Energy needs: [id number] (25-30 kcal/kgBW) d/t pt respiratory distress Est Protein needs: 71-95 gms/day (1.2-1.6 gm/kgBW) d/t pt respiratory distress Will continue to monitor and reassess prn. LABS: K 5.4 H, GLUC 59 L, ALB 2.8 L GI: Pt with no BM today per RN rec BS: 13 mod risk. Refer to wound assessment report for full details. PES: 1) Increased nutrient needs r/t pt with no PO intake aeb pt is sedated, intubated with mech vent, NPO 2) Altered nutrition related lab values r/t current medical condition aeb hypocalcemia, mod hypoalbuminemia Comments Will continue to monitor PO status, skin status, pertinent labs and weight trends. Will f/u in 2-3 days. 1) Continue to closely monitor NPO status. 2) If pt remains NPO for the next 48 hours, consider EN nutrition support Osmolite 1.2 @ 60 ml/hr goal rate as tolerated and per MD approval 3) Gradually advance pt to oral Cardiac 2gNa,low fat,low chol diet when medically feasible and as tolerated 4) Consider a daily MVI with 500mg VitC bid 5) Continue current plan of care
--- NOTE | 2020-02-05 12:59 | NUR ---
parameters on cpap: nif -24 vc 703 rsbi 28 leak test 266
--- NOTE | 2020-02-05 13:05 | NUR ---
LEFT VOICEMAIL WITH DR SERNA REGARDING CPAP RESULTS. MESSAGE LEFT WITH NUMBER [phone]. WAITING CALL BACK
--- NOTE | 2020-02-05 13:14 | NUR ---
PT EXTUBATED AT THIS TIME AND PLACED ON 40% COOL MIST AEROSOL. SPO2 100%. NO STRIDOR. PT HAS STRONG PRODUCTIVE COUGH. RN RENAY AWARE OF EXTUBATION.
--- NOTE | 2020-02-05 13:21 | NUR ---
CONTACT FAMILY UPDATE ON EXTUBATION SPOKE WITH SON CORAL AFTER PASSWORD VERIFICATION. NOTIFIED OF PATIENT'S EXTUBATION AND STABLE STATUS AT THIS TIME BUT REMAINS ON BLOOD PRESSURE MEDICATION SUPPORT. CORAL VERBALIZED UNDERSTANDING AND WILL NOTIFY SISTER.
--- NOTE | 2020-02-05 15:55 | NUR ---
HOSPITALIST AT BEDSIDE DR Varun SAENZ UPDATED ON PATIENT'S STATUS, SUCCESSFUL EXTUBATION ORDERED BY DR SERNA AND NEED TO INCREASE PHENYLEPHRINE PER PROTOCOL SECONDARY TO DECREASED BP. DOCTOR ALSO AWARE OF MORNING LABS AND FAMILY CONCERNS REGARDING HYPOXIA PRIOR TO ADMISSION TO HOSPITAL. MD VERBALIZED UNDERSTANDING AND ASSESSED PATIENT'S ABDOMEN PATIENT REPORTS DISCOMFORT. ORDERS RECEIVED AND WILL BE ENTERED BY MD.
[2020-02-05] MEDS ORDERED: IOHEXOL 300 MG/ML 100ML BOTTLE IJ ONE ×2 (16:12→18:37)
--- NOTE | 2020-02-05 16:15 | NUR ---
MEDICATION HELD PER MD DR SAENZ AWARE OF IV CONTRAST AND PENDING LASIX TO BE ADMINISTERED LATER TODAY. DR SAENZ ORDERED LASIX TO BE HELD AND INFUSE NS AT 50 MLS/HR FOR [address] CHEST/PELVIS WITH CONTRAST. PER CONVERSATION WITH FAMILY REGARDING CONSENT FOR CT CHEST/PELVIS, JESS MONROE PATIENT'S DAUGHTER NOTIFIED THIS NURSE THAT "MY MOTHER HAS A BLOOD DISORDER THAT MAKES HER WBC AND RBC GO UP, DR HENSLEY PRESCRIBES HYDROXYURIA". DR SAENZ NOTIFIED AND ORDERED HEMATOLOGY CONSULT WITH DR HENSLEY TO MANAGE THIS CONDITION.
[2020-02-05] MEDS: NOREPINEPHRINE 8 MG/250ML KIT 250 ML IV SCH (16:58)
[2020-02-05] MEDS: MEROPENEM 1GM IVPB 100 ML IV SCH ×2 (17:19→21:37)
[2020-02-05] MEDS ORDERED: SODIUM CHLORIDE 0.9% 1,000 ML IV ONE (17:30)
[2020-02-05 17:54] LABS: Urine WBC None Seen /hpf (0 - 5)
[2020-02-05 18:27] LABS: Urine Bacteria NONE SEEN /hpf (None Seen); Urine Blood TRACE /uL (Negative); Urine Mucus FEW (None Seen); Urine Specific Gravity 1.007 (1.001-1.035)
--- NOTE | 2020-02-05 19:00 | NUR ---
Opening Shift Note Assumed care of patient, awake and alert with mild confusion. No S/S of distress/SOB or pain. Instructed on POC and to call for assist PRN, will continue to monitor for changes Q1hr and PRN.
--- NOTE | 2020-02-05 19:18 | NUR ---
END OF SHIFT/CT ABD-PELVIS TOOK PATIENT TO RADIOLOGY FOR CT ORDERED BY MD. PATIENT TOLERATED WELL, PATIENT ALERT AND ORIENTED X2, NO DISTRESS NOTED, RESPIRATIONS EVEN AND UNLABORED CURRENTLY ON 2 LITERS NASAL CANNULA. ENDORSED CONTINUED CARE TO TRACTOR CRANE OPERATOR RN.
--- NOTE | 2020-02-05 19:41 | NUR ---
Dr. Diaz paged. RN paged Dr. Diaz to inform him of patient being extubated today and now has a heart rate that ranges from the low 100's to the low 150's in A-fib. New order was received and verified.
[2020-02-05] MEDS ORDERED: DIGOXIN (250MCG/ML) 2 ML AMPULE IV ONE (19:45)
[2020-02-05] MEDS ORDERED: DIGOXIN (250MCG/ML) 2 ML AMPULE ONE (19:49)
--- NOTE | 2020-02-05 19:55 | NUR ---
Digoxin given IV push over 5 minutes per protocol.
--- NOTE | 2020-02-05 21:39 | NUR ---
BM: Patient noted to have a BM. RN provided virginia care and linen change.
--- NOTE | 2020-02-05 22:40 | NUR ---
RT NOTE: PT RESTING WITH NO DISTRESS NOTED. PT ON 2LPM NC SPO2 99% HR 85, RR 18. NO TX INDICATED AT THIS TIME.
--- NOTE | 2020-02-05 23:38 | NUR ---
NGT: Patient was repositioning herself in bed and accidentally pulled out her NGT. Patient was assessed and noted with no s/s of discomfort, distress or trauma.
[2020-02-06] VITALS (72 sets, daily range): BP systolic 80–132; BP diastolic 33–67
[2020-02-06 03:31] LABS: Basophils # (auto) 0.2 10 ^3/uL (0-0.2); Basophils % (auto) 0.8 % (0.0-2.0); Eosinophils # (auto) 0.2 10 ^3/uL (0-0.8); Eosinophils % (auto) 0.9 % (0.0-7.0); Hematocrit 23.7 % (36.0-46.0); Hemoglobin 7.5 g/dL (12.2-16.2); Lymphocytes # (auto) 0.3 10 ^3/uL (0.4-5.4); Lymphocytes % (auto) 1.4 % (10.0-50.0); Mean Corpuscular Hgb Conc. 31.8 g/dL (32.0-36.0); Mean Corpuscular Volume 100.6 fL (80.0-100.0); Monocytes # (auto) 0.8 10 ^3/uL (0-1.3); Monocytes % (auto) 3.6 % (0.0-12.0); Neutrophils # (auto) 19.4 10 ^3/uL (1.6-8.6); Neutrophils % (auto) 93.3 % (37.0-80.0); Platelet Count (auto) 96 10^3/uL (140-450); Red Blood Cells 2.36 10^6/uL (4.0-5.20); Red Cell Distribution Width 30.4 % (11.8-14.3); White Blood Cell 20.8 10^3/uL (4.4-10.8)
[2020-02-06 03:48] LABS: BUN/Creatinine Ratio 24.4; Calcium 7.2 mg/dL (8.5-10.1)
--- NOTE | 2020-02-06 04:49 | NUR ---
BM: Patient noted to have a BM. RN provided virginia care and linen change.
--- NOTE | 2020-02-06 05:29 | NUR ---
BM: Patient noted to have a BM. RN provided virginia care and linen change.
[2020-02-06] MEDS: MEROPENEM 1GM IVPB 100 ML IV SCH ×3 (05:38→22:00)
[2020-02-06] MEDS: FUROSEMIDE 20 MG/2 ML VIAL IV SCH ×2 (05:38→18:27)
--- NOTE | 2020-02-06 06:25 | NUR ---
Family: RN received call from family. Password was verified, family updated on patient condition and situation. All questions and concerns answered.
--- NOTE | 2020-02-06 06:56 | NUR ---
BM: Patient had another watery large BM. This is now the 4th watery BM tonight. RN provided teaching to patient on the possibility of a rectal tube to prevent skin irritation and skin breakdown but patient refused at this time. Sacral opti-foam remains in place to prevent skin breakdown.
[2020-02-06] MEDS: VANCOMYCIN 750mg/250ml 250 ML IV SCH ×2 (07:00→19:00)
--- NOTE | 2020-02-06 07:00 | NUR ---
Respiratory note: PRN MED NEB TX NOT INDICATED AT THIS TIME. HR 91, RR 18, SPO2 99% ON 2 L NC. NOC RN AT BEDSIDE. NO SIGNS OR SYMPTOMS OF RESPIRATORY DISTRESS NOTED AT THIS TIME. INFORMED PT TO HIT CALL BUTTON IF FEELING SOB OR WHEEZING.
[2020-02-06] MEDS: CALCIUM W/VIT D (600MG/400IU) TAB PO SCH ×2 (08:00→18:00)
--- NOTE | 2020-02-06 09:22 | NUR ---
PAGED DR Rachele SAENZ REGARDING HEMOGLOBIN AND CT RESULTS
[2020-02-06] MEDS: PANTOPRAZOLE 40 MG/10 ML VIAL INJ IV SCH (10:00)
[2020-02-06] MEDS: POTASSIUM EFFERVESENT TAB 25 MEQ GT SCH (10:00)
--- NOTE | 2020-02-06 10:05 | NUR ---
SPOKE WITH DR Rachele SAENZ UPDATED ON STATUS AND NEW ORDERS RECEIVED
[2020-02-06] MEDS ORDERED: MORPHINE SULF INJ 2 MG/ML SYRINGE 1ML IV PRN (10:15)
--- NOTE | 2020-02-06 10:15 | NUR ---
SPOKE WITH DR MCDONOUGH REGARDING CT RESULTS STATES HE WILL EVALUATE
--- NOTE | 2020-02-06 10:44 | NUR ---
DR ECHOLS AT BEDSIDE DISCUSSED PATIENTS STATUS AND PLAN OF CARE WITH PATIENT AND RN NEW ORDERS PLACED
[2020-02-06 11:05] LABS: Hematocrit 25.1 % (36.0-46.0); Hemoglobin 7.7 g/dL (12.2-16.2)
--- NOTE | 2020-02-06 11:10 | NUR ---
assessment Patient is a 79 year old female who is on a vent in ICU. Per patients daughter Shruti prior to admission patint lived home with her and needed assistance. Patient has a fww and a cane for home use. Patients PCP is Dr Caldwell. Shruti informed me she called 911 due to patient having shortness of breath. Patient was admitted. I informed Shruti patients post discharge needs to be determined once down graded from ICU. I will continue to monitor and follow up as appropriate. Shruti verbalized understanding. Addendum: 02/06/20 at 1114 by Michelle KENNEY Amended: Links added.
--- NOTE | 2020-02-06 12:44 | NUR ---
DR HENSLEY AT BEDSIDE DISCUSSED PATIENTS STATUS AND PLAN OF CARE. NEW ORDERS RECEIVED
--- NOTE | 2020-02-06 13:03 | NUR ---
DR ALEJANDRE AT BEDSIDE ASSESS PATIENT AND DISCUSSED PLAN OF CARE, NEW ORDERS PLACED. PATIENT TO REMAIN NPO AT THIS TIME
--- NOTE | 2020-02-06 14:02 | NUR ---
SPOKE WITH PATIENT ROYA MONCADA PROVIDED PASSWORD. UPDATED ON STATUS AND PLAN OF CARE. TRANSFERRED CALL TO PORTABLE PHONE FOR HIM TO SPEAK DIRECTLY WITH PATIENT
--- NOTE | 2020-02-06 14:15 | NUR ---
DR Rachele SAENZ AT BEDSIDE DISCUSSED STATUS AND PLAN OF CARE WITH PATIENT AND RN. NEW ORDERS RECEIVED
--- NOTE | 2020-02-06 15:08 | NUR ---
SPOKE WITH PATIENTS DAUGHTER JESS PROVIDED PASSWORD UPDATED PATIENT STATUS AND PLAN OF CARE TRANSFERRED DIRECTLY TO PATIENT
[2020-02-06 15:26] LABS: Albumin 2.1 g/dL (3.4-5.0); Magnesium 2.3 mg/dL (1.6-2.6); Phosphorus 1.9 mg/dL (2.5-4.90)
[2020-02-06] MEDS: metroNIDAZOLE 500MG/100ML 100 ML IV SCH ×2 (15:51→21:00)
[2020-02-06] MEDS: NOREPINEPHRINE 8 MG/250ML KIT 250 ML IV SCH (16:58)
[2020-02-06] MEDS ORDERED: TPN PER PHARMACY 0 ML IV SCH (17:15)
[2020-02-06] MEDS ORDERED: SODIUM PHOSPHATES 40 MEQ in D5W 5% 250 ML IV ONE (17:30)
[2020-02-06 18:38] LABS: Basophils # (auto) 0.2 10 ^3/uL (0-0.2); Eosinophils # (auto) 0.1 10 ^3/uL (0-0.8); Lymphocytes # (auto) 0.2 10 ^3/uL (0.4-5.4); Monocytes # (auto) 0.5 10 ^3/uL (0-1.3); Nucleated Red Blood Cells % 0.1 %; White Blood Cell 14.9 10^3/uL (4.4-10.8)
[2020-02-06 18:40] LABS: Basophils % (auto) 1.2 % (0.0-2.0); Eosinophils % (auto) 0.3 % (0.0-7.0); Hematocrit 25.3 % (36.0-46.0); Lymphocytes % (auto) 1.4 % (10.0-50.0); Mean Corpuscular Hemoglobin 32.1 pg (28.0-32.0); Mean Corpuscular Hgb Conc. 31.6 g/dL (32.0-36.0); Mean Corpuscular Volume 101.5 fL (80.0-100.0); Monocytes % (auto) 3.4 % (0.0-12.0); Neutrophils % (auto) 93.7 % (37.0-80.0); Platelet Count (auto) 87 10^3/uL (140-450); Red Blood Cells 2.49 10^6/uL (4.0-5.20)
[2020-02-06 18:52] LABS: Red Cell Distribution Width 29.8 % (11.8-14.3)
[2020-02-06] MEDS ORDERED: AMINO ACID INFUSION IN D5W 2,000 ML IV NR (20:00)
[2020-02-06] MEDS: ONDANSETRON HCL 4 MG/2 ML VIAL IV PRN (22:00)
--- NOTE | 2020-02-06 22:00 | NUR ---
BM: Patient noted to have a BM. RN provided virginia care and linen change.
--- NOTE | 2020-02-06 23:59 | NUR ---
Respiratory note: PT SEEN AND ASSESSED FOR PRN MED NEB TX AT 2359. TX IS NOT INDICATED AT THIS TIME. NO RESPIRATORY DISTRESS NOTED. HR 82 RR 16 SP02 99% ON 3L NASAL CANNULA.
[2020-02-07] VITALS (43 sets, daily range): BP systolic 102–133; BP diastolic 49–76
--- NOTE | 2020-02-07 | NUR ---
BM: Patient noted to have a watery BM. RN provided virginia care and linen change.
--- NOTE | 2020-02-07 02:30 | NUR ---
BM: Patient noted to have another watery BM. RN provided virginia care and linen change. RN noted patients sacrum to now be very irritated and maceration occurring. Patients skin is now noted to be open d/t frequent watery bowel incontinence. RN has been replacing sacral opti-foams with each bowel incontinence and virginia care but opti-foam gets saturated and ineffective. Patient verbalized being very tired of her incontinence and wants RN to doing something to help her with her issue. Patient verbalized if she can have "the rectal tube, I'm scared of my skin ripping". RN placed a rectal tube in patient d/t frequent water loose stools and worsening of sacral skin integrity. Wound photo was taken of sacrum and wound consult shall be placed for follow up on patient. New opti-foam placed to sacrum for protection. Patient tolerated rectal tube insertion well with no s/s fo discomfort or distress. Another female RN was present at bedside during virginia care and insertion of rectal tube. Watery loose stool was noted to be flowing through tube at time of insertion. Patient repositioned for comfort and resting comfortably. RN will continue to monitor and assess patient.
[2020-02-07 03:15] LABS: White Blood Cell 15.2 10^3/uL (4.4-10.8)
[2020-02-07 03:16] LABS: Hematocrit 25.1 % (36.0-46.0); Mean Corpuscular Hgb Conc. 31.9 g/dL (32.0-36.0); Mean Corpuscular Volume 100.1 fL (80.0-100.0); Platelet Count (auto) 103 10^3/uL (140-450)
[2020-02-07 03:20] LABS: Red Cell Distribution Width 29.5 % (11.8-14.3)
[2020-02-07 03:22] LABS: Basophils % (manual) 0 (0.0-2.0); Blast Cells 0; Metamyelocytes % 0; Myelocytes % 0; Promyelocytes % 0; Reactive Lymphocytes 0
[2020-02-07 03:32] LABS: Calcium 6.9 mg/dL (8.5-10.1); Magnesium 1.7 mg/dL (1.6-2.6)
[2020-02-07 03:38] LABS: BUN/Creatinine Ratio 26.1; Bilirubin, Total 1.8 mg/dL (0.2-1.0); Phosphorus 2.8 mg/dL (2.5-4.90); Pre Albumin 7.4 mg/dL (20.0-40.0); Total Protein 4.6 g/dL (6.4-8.2)
[2020-02-07] MEDS: MAGNESIUM SULFATE 1GM/100ML 100 ML IV PRN ×3 (04:00→06:04)
[2020-02-07] MEDS: POTASSIUM CHL 20MEQ/100ML 100 ML IV SCH ×3 (04:15→08:32)
--- NOTE | 2020-02-07 04:15 | NUR ---
Primary MD paged: RN paged primary MD for new orders d/t patient having a low potassium and protocol is to call MD for a potassium level less than 3.1. Patient has a potassium of 3.0. call worker person MD Treviño" answered RN's page and was made aware of patients condition and situation. New orders received for 60 meq of potassium IV. Orders verified.
[2020-02-07 05:31] LABS: Band Neutrophils % (manual) 5; Eosinophils % (manual) 1 (0-7); Lymphocytes % (manual) 1 (10.0-50.0); Monocytes % (manual) 1 (0-12)
[2020-02-07] MEDS: FUROSEMIDE 20 MG/2 ML VIAL IV SCH ×2 (05:47→18:11)
[2020-02-07] MEDS: MEROPENEM 1GM IVPB 100 ML IV SCH ×3 (05:47→22:00)
[2020-02-07] MEDS: metroNIDAZOLE 500MG/100ML 100 ML IV SCH ×3 (05:47→21:37)
--- NOTE | 2020-02-07 05:50 | NUR ---
Lasix: 0600 lasix held due to patient having a low potassium and requiring 60meq of potassium IV to replenish electrolyte.
[2020-02-07] MEDS: VANCOMYCIN 750mg/250ml 250 ML IV SCH ×2 (06:42→19:05)
--- NOTE | 2020-02-07 07:45 | NUR ---
SPOKE WITH DTR JESS ALVARADO, UPDATED HER ON POC AFTER PASSWORD OBTAINED, DTR ALSO SPOKE WITH PATIENT ON PORTABLE ICU PHONE.
--- NOTE | 2020-02-07 08:00 | NUR ---
ASSESSMENT COMPLETED, A/O TO PERSON ONLY. DENIES ANY PAIN. VS STABLE. ON 2L PM O2 VIA NC WITH NO APPARENT RESPIRATORY DISTRESS. NO BLEEDING ASSESSED. ABDOMEN SOFT/NONTENDER. TUBES/LINES REMAIN INTACT. ORAL CARE PROVIDED, TURNED/REPOSITIONED WITH BED IN LOW POSITION AND CALL LIGHT IN REACH.
--- NOTE | 2020-02-07 09:30 | NUR ---
DR ECHOLS AND DR ALEJANDRE AT BEDSIDE, [place] FOR ICE CHIPS PER BOTH DRS. DR ECHOLS PLACED ORDER.
[2020-02-07] MEDS: CALCIUM W/VIT D (600MG/400IU) TAB PO SCH ×2 (09:44→17:49)
[2020-02-07] MEDS: POTASSIUM EFFERVESENT TAB 25 MEQ GT SCH (09:45)
[2020-02-07] MEDS: PANTOPRAZOLE 40 MG/10 ML VIAL INJ IV SCH (10:48)
--- NOTE | 2020-02-07 11:15 | NUR ---
WOUND CARE NOTE: Wound care in for reevaluation of wounds and new wound care request regarding new skin integrity issue that are noted by bedside nurse upon assessment. Bedside nurse took photograph of patient's sacral skin issue upon discovery for reference. Patient continue resting in ICU Rm. 102. Patient is awake, alert and able to verbalize needs. She's in no stated pain at this time. Patient is able to assist in turning and repositioning and her Gil score is 13. Skin/wound assessment done with the assistance of patient's nurse, TAE Gifford. Patient developed maceration to sacrum due to incontinence of loose stools. Patient now has rectal tube in placed with dark liquid stools in tubing and in bag. Her distal sacrum display skin erosion with blanchable bright erythremic surrounding skin. Chantelle care given,applied Z Guard cream and covered sacrum with Opti foam sacral dressing. Removed dressing to patient's R foot. Patient's Rt medial ankle (2.2x1.2x0.3cm) and distal Rt lateral foot ( 3.5x2cm) continue to display sutured ulcer. Wound is covered with black necrotic tissue with some intact sutured,chantelle wound is bright red, scant serous drainage noted, no odor noted. Patient' RT lateral ankle continue to display 4.2x4x0.3cm open full thickness stasis ulcer. Wound bed is red with yellow fibrin,chantelle wound is bright red,scant serous drainage noted, no odor noted. Cleansed Rt ankle, lateral foot wounds, and changed the dressing as ordered. New photograph of wounds are taken for reference. Patient tolerated well, repositioned for comfort sitting on a bed with head of bed elevated. Bed in low position,call andersen within reach, all safety precautions in placed. RECOMMENDATION: BID/PRN cleaning and application of Z Guard cream to sacral, buttocks perineum per MD order, frequent chantelle care/check, keep clean and dry, continuation of all other wound care order prescribed by MD, continue with skin/wound plan of care, continue monitoring by wound care while patient is hospitalized. Addendum: 02/07/20 at 1656 by Dee Frankel RN Amended: Links added.
--- NOTE | 2020-02-07 12:14 | NUR ---
Nutrition Followup Notes Pt wt is 72.8 kg. Pt is extubated, awake eating ice chips with no relatives at bedside when rounded this morning. Pt is still NPO with no diet order in place. Pt stated she feels good. Will continue to monitor PO status, skin status, pertinent labs and weight trends. Will f/u in 2-3 days. Est Energy needs: 8611-4304 (25-30 kcal/kgBW) d/t pt respiratory distress Est Protein needs: 71-95 gms/day (1.2-1.6 gm/kgBW) d/t pt respiratory distress Will continue to monitor and reassess prn. LABS: K 3.0 L, CA 6.9 L, ALB 2.0 L GI: Pt had 3 BM today. BM today per RN rec BS: 14 mod risk. Refer to wound assessment report for full details. PES: 1) Increased nutrient needs r/t pt with no PO intake aeb pt is sedated, intubated with mech vent, NPO 2) Altered nutrition related lab values r/t current medical condition aeb hypocalcemia, mod hypoalbuminemia Comments Will continue to monitor PO status, skin status, pertinent labs and weight trends. Will f/u in 2-3 days. 1) Continue to closely monitor NPO status. 2) If pt remains NPO for the next 48 hours, consider EN nutrition support Osmolite 1.2 @ 60 ml/hr goal rate as tolerated and per MD approval 3) Gradually advance pt to oral Cardiac 2gNa,low fat,low chol diet when medically feasible and as tolerated 4) Consider a daily MVI with 500mg VitC bid 5) Continue current plan of care
--- NOTE | 2020-02-07 14:17 | NUR ---
PICC LINE RN AT BEDSIDE
--- NOTE | 2020-02-07 14:33 | NUR ---
PICC line placement Patient/Patient significant other educated on need for PICC line placement. All risks and benefits explained and all questions and concerns addressed prior to procedure. Noted past medical history and allergies with no contraindications. INR and Plt counts within acceptable range. 5 fr PICC line inserted via right brachial vein using [employer] US and Tip Location System. Sterile technique with maximum barrier precautions utilized. Blood return obtained from each of the 2 lumens and each flushed easily with NS using proper technique. PICC secured with Stat-lock; biodisc and occlusive dressing applied. Stat portable chest x-ray obtained for PICC tip placement. *Baseline Arm Circumference 20 cm. Internal length 37 cm. External length 0 cm. PICC lot #[id number]
[2020-02-07] MEDS ORDERED: LIDOCAINE 1% (LOCAL ANESTH.) PF 5ml SDV ID ONE (14:45)
--- NOTE | 2020-02-07 14:59 | NUR ---
SPOKE WITH DR ROMAN BUCKLEY AWARE PATIENT NEURO STATUS, VS AND AWARE PICC RN JUST PLACED PICC LINE. OK TO DC TLC TO LEFT FEMORAL SITE. PER PICC RN SANFORD VEE TO USE. Addendum: 02/07/20 at 1503 by Balta Saravia RN DR OWENS AWARE POTASSIUM GIVEN THIS AM AND OK FOR REDRAW POTASSIUM LEVEL NOW.
--- NOTE | 2020-02-07 15:00 | NUR ---
Okay to use PICC line Xray completed and reviewed. Okay to use PICC line. Balta STRONG notified.
--- NOTE | 2020-02-07 15:30 | NUR ---
DC'D TLC IN LEFT FEMORAL PER DR OWENS ORDER PATIENT TOLERATED WELL, MANUAL PRESSURE HELD FOR 5 MINS, NO BLEEDING AND PRESSURE DSG APPLIED
--- NOTE | 2020-02-07 15:44 | NUR ---
DR FARIAS AT BEDSIDE
--- NOTE | 2020-02-07 16:36 | NUR ---
DR NGUYEN AT BEDSIDE, EXAMINED PATIENT
--- NOTE | 2020-02-07 17:58 | NUR ---
RT NOTE PT WAS SEEN BY RT FOR PRN HHN TX. PT STATES SHE IS NOT HAVING ANY TROUBLE BREATHING. HR 94, RR 25, BS CTA, POX 99% ON 3L NASAL CANNULA. PT AWARE TO CALL IF TX NEEDED. TAE SAM AT BEDSIDE. CONT TO MONITOR PT. Addendum: 02/07/20 at 1800 by Mare Bejarano RT Amended: Links added.
[2020-02-07] MEDS: TPN PER PHARMACY IV NR ×10 (19:36)
[2020-02-07] MEDS: POTASSIUM CHL 20MEQ/100ML 100 ML IV PRN ×2 (19:45→20:27)
--- NOTE | 2020-02-07 20:00 | NUR ---
Dr. Briscoe rounding. No new orders.
[2020-02-07] MEDS: SODIUM CHLOR 0.9% PF (SALINE LOCK) 10ML VIAL/SYR IV SCH (21:38)
[2020-02-08] VITALS (22 sets, daily range): BP systolic 117–132; BP diastolic 66–86
--- NOTE | 2020-02-08 05:00 | NUR ---
Rectal Tube: RN noted patients rectal tube to have come out, balloon for rectal tube was deflated and patient was incontinent of water stool. RN with the assistance of female RN provided virginia care and new rectal tube was inserted d/t patients frequent watery stool and wound to sacrum. New opti-foam to sacrum was placed. Patient tolerated interventions well with no s/s of discomfort or distress.
[2020-02-08] MEDS: metroNIDAZOLE 500MG/100ML 100 ML IV SCH ×3 (05:36→22:48)
[2020-02-08] MEDS: FUROSEMIDE 20 MG/2 ML VIAL IV SCH ×2 (05:36→19:00)
[2020-02-08] MEDS: MEROPENEM 1GM IVPB 100 ML IV SCH ×3 (05:36→22:48)
[2020-02-08 06:07] LABS: Hematocrit 27.4 % (36.0-46.0); Hemoglobin 8.6 g/dL (12.2-16.2); Mean Corpuscular Hemoglobin 31.6 pg (28.0-32.0); Mean Corpuscular Hgb Conc. 31.3 g/dL (32.0-36.0); Mean Corpuscular Volume 100.9 fL (80.0-100.0); Platelet Count (auto) 102 10^3/uL (140-450); Red Blood Cells 2.72 10^6/uL (4.0-5.20); White Blood Cell 19.8 10^3/uL (4.4-10.8)
--- NOTE | 2020-02-08 06:14 | NUR ---
RT NOTE: NO TX INDICATED AT THIS TIME. NO SIGNS OF RESPIRATORY DISTRESS NOTED. LUNG SOUNDS CLEAR/DIMINISHED T/O. ON 2LNC SPO2 93 HR 95 RR 28. WILL CONTINUE TO MONITOR.
[2020-02-08 06:16] LABS: Basophils % (manual) 0 (0.0-2.0); Blast Cells 0; Eosinophils % (manual) 0 (0-7); Myelocytes % 0; Promyelocytes % 0; Reactive Lymphocytes 0; Red Cell Distribution Width 28.8 % (11.8-14.3)
[2020-02-08 06:23] LABS: Potassium 3.6 mmol/L (3.5-5.1)
[2020-02-08 06:32] LABS: Albumin 2.2 g/dL (3.4-5.0); BUN/Creatinine Ratio 32.6; Calcium 7.1 mg/dL (8.5-10.1); Total Protein 5.1 g/dL (6.4-8.2)
[2020-02-08] MEDS: VANCOMYCIN 750mg/250ml 250 ML IV SCH ×2 (06:45→20:00)
[2020-02-08 07:10] LABS: Phosphorus 0.9 mg/dL (2.5-4.90)
[2020-02-08 07:21] LABS: Band Neutrophils % (manual) 15; Lymphocytes % (manual) 2 (10.0-50.0); Metamyelocytes % 4; Monocytes % (manual) 3 (0-12)
[2020-02-08] MEDS: CALCIUM W/VIT D (600MG/400IU) TAB PO SCH ×2 (08:00→20:11)
--- NOTE | 2020-02-08 08:04 | NUR ---
AT BEDSIDE DISCUSSED PTS STATUS, NO NEW ORDERS.
--- NOTE | 2020-02-08 08:10 | NUR ---
AT BEDSIDE DISCUSSED STATUS AND PLAN OF CARE WITH PT, NEW ORDERS PLACED.
[2020-02-08] MEDS ORDERED: POTASSIUM PHOSPHATE 44 MEQ in D5W 5% 250 ML IV ONE (08:45)
[2020-02-08] MEDS: ONDANSETRON HCL 4 MG/2 ML VIAL IV PRN (09:29)
--- NOTE | 2020-02-08 09:40 | NUR ---
PT TRANSPORTED TO RADIOLOGY PT CONNECTED TO PORTABLE SURGEON PARTNER, TRANSPORTED WITH TEXTILE CONVERTER AND TECH TO CT. VITALS STABLE AT TIME OF TRANSPORT.
--- NOTE | 2020-02-08 09:45 | NUR ---
PT BROTHER CALLED PROVIDED PASSWORD, UPDATED ON PTS STATUS. STATED HE WILL CALL BACK TO SPEAK WITH PT LATER.
--- NOTE | 2020-02-08 09:52 | NUR ---
PT RETURNED [facility] RECONNECTED TO BEDSIDE MONITORS, VITALS REMAIN STABLE WITHIN VIEW OF NURSES STATION. BED IN LOW POSITION, CALL LIGHT WITHIN REACH.
[2020-02-08] MEDS: POTASSIUM EFFERVESENT TAB 25 MEQ GT SCH (10:00)
[2020-02-08] MEDS: SODIUM CHLOR 0.9% PF (SALINE LOCK) 10ML VIAL/SYR IV SCH ×2 (10:00→22:02)
--- NOTE | 2020-02-08 10:10 | NUR ---
AT BEDSIDE DISCUSSED PLAN OF CARE WITH PT, NEW ORDERS RECEIVED.
[2020-02-08] MEDS: PANTOPRAZOLE 40 MG/10 ML VIAL INJ IV SCH (10:30)
[2020-02-08 10:46] LABS: Folate (Folic Acid) > 24.00 ng/mL (5.38-24)
--- NOTE | 2020-02-08 13:15 | NUR ---
CARTOGRAPHY TECHNICIAN AT BEDSIDE
--- NOTE | 2020-02-08 13:20 | NUR ---
ELECTROENCEPHALOGRAM EEG COMPLETED AT BEDSIDE. PRIMARY RN OZZY CORDERO.
--- NOTE | 2020-02-08 13:23 | NUR ---
DR.L SAENZ AT BEDSIDE DISCUSSED PLAN OF CARE WITH PT, NEW ORDERS RECEIVED.
--- NOTE | 2020-02-08 13:30 | NUR ---
DR.L SAENZ REGARDING HIGHER LEVEL OF CARE AND DR.FANOUS SHARP FOR HIGHER LEVEL OF CARE TRANSFER.
--- NOTE | 2020-02-08 14:40 | NUR ---
02/08/20 1440 Spoke with Kia DEXTER at [facility] [phone] regarding Transfer to Higher Level of Care for Vascular Surgeon for Rt Leg Vascular Endarterectomy, stated to reach out to [facility], [facility], [facility], [facility], stated she will call back with authorizations for the hospital and transport.
--- NOTE | 2020-02-08 14:45 | NUR ---
SPOKE WITH DAUGHTER PROVIDED PASSWORD, UPDATED ON PLAN OF CARE REGARDING TRANSFER TO HIGHER LEVEL OF CARE. ADDRESSED CONCERNS. TRANSFERRED CALL TO PORTABLE TO SPEAK WITH PT.
--- NOTE | 2020-02-08 15:09 | NUR ---
02/08/2020 7985 Faxed to [facility] clinical packet requesting Transfer to Higher Level of Care For Vascular Surgeon for Right Leg Vascular Endarterectomy
--- NOTE | 2020-02-08 15:11 | NUR ---
SPOKE WITH SON PROVIDED PASSWORD, UPDATED ON PTS STATUS. TRANSFERRED CALL TO PORTABLE PHONE TO SPEAK WITH PT.
--- NOTE | 2020-02-08 15:45 | NUR ---
02/08/20 0925 Called transfer center for [facility] [phone], spoke with Candy regarding transfer to Higher Level of Care, stated they have no beds, are closed for transfers.
--- NOTE | 2020-02-08 15:54 | NUR ---
02/08/20 Sherry4 Called [facility] [phone] requesting bed for higher level of care for the patient, for Vascular surgeon for rt leg Endarterectomy, spoke with Sandy Paez journeyman powerhouse operator and stated they have no beds
--- NOTE | 2020-02-08 16:00 | NUR ---
02/08/20 Sherry4 Called [facility] [phone] requesting bed for higher level of care for the patient, for Vascular surgeon for rt leg Endarterectomy, spoke with Sandy Paez supervisor tank house and stated they have no beds
--- NOTE | 2020-02-08 16:37 | NUR ---
I called [employer] alterations manager Kia [phone] and left message asking for authorization numbers for higher level of care facility as well as for [facility].
--- NOTE | 2020-02-08 16:45 | NUR ---
I called [facility]-spoke with Vamshi-placed patient on will-call pending transfer to higher level of care. I spoke with [employer] Medical Logistics Specialist Kia-authorization number for [facility] is [id number]. Authorization number for accepting facility is [id number].
--- NOTE | 2020-02-08 17:02 | NUR ---
02/08/2020 Called [facility] [phone] spoke with Juno Rubio stated they have no beds Called [facility] spoke with Jenny at the transfer center [phone] and faxed clinical packet as requested [phone] Called [facility] [phone] and spoke with Alexandrea Rubio and stated they have no beds at this time but to fax a clinical packet to [phone] and she will see what she could do
--- NOTE | 2020-02-08 19:12 | NUR ---
ASSESSED PT @ THIS TIME FOR PRN MED NEB TX. PT IS AWAKE AND ALERT AND SITTING UP IN BED EATING DINNER. SHE STATES HER BREATHING IS DOING FINE. NO DISTRESS NOTED. CURRENTLY ON 3L NC SPO2 94%, HR 96, RR 20 AND BS ARE CLEAR/DIMINISHED. WILL CONTINUE TO MONITOR.
--- NOTE | 2020-02-08 19:38 | NUR ---
Opening Shift Note Assumed care of patient, awake and alert x 3. No S/S of distress/SOB or pain.Bed is in lowest position and locked. Call light within reach. Board updated. Patient secured to continuous pulse oximetry, continuous heart monitor, BP cuff secured to left arm. Instructed on POC and to call for assist PRN, will continue to monitor for changes Q1hr and PRN.
[2020-02-08] MEDS ORDERED: TPN PER PHARMACY IV NR ×10 (20:00)
[2020-02-08] MEDS: TPN PER PHARMACY IV NR ×10 (20:11)
[2020-02-08] MEDS: LOPERAMIDE HCL 2 MG CAP PO SCH (20:11)
[2020-02-09] VITALS (22 sets, daily range): BP systolic 70–125; BP diastolic 42–80
--- NOTE | 2020-02-09 | NUR ---
Patient sleeping comfortably in bed at this time. No signs of distress or SOB. Will continue to assess.
--- NOTE | 2020-02-09 02:25 | NUR ---
Increased oxygen to 4 l/min NC. patient desaturated to 88% on 3 l/min NC. Patient's oxygen saturation now is 96%. Will continue to assess.
--- NOTE | 2020-02-09 04:48 | NUR ---
Partial bed bath performed at this time along with lab draws. Patient tolerated well.
[2020-02-09 04:50] LABS: Potassium 3.8 mmol/L (3.5-5.1)
[2020-02-09 04:59] LABS: Bilirubin, Total 1.9 mg/dL (0.2-1.0); Calcium 7.1 mg/dL (8.5-10.1); Total Protein 4.9 g/dL (6.4-8.2)
--- NOTE | 2020-02-09 05:55 | NUR ---
Respiratory note: ASSESSED PT FOR PRN TX PT IS AWAKE AND ALERT, NO RESP DISTRESS NOTED. HR 94, RR35, SPO2 95% ON 4L N/C. BS ARE CLEAR, NO INDICATION FOR TX AT THIS TIME. WILL CONTINUE TO MONITOR.
[2020-02-09] MEDS: metroNIDAZOLE 500MG/100ML 100 ML IV SCH ×3 (06:02→22:00)
[2020-02-09] MEDS: VANCOMYCIN 750mg/250ml 250 ML IV SCH ×2 (06:03→20:03)
[2020-02-09] MEDS: MEROPENEM 1GM IVPB 100 ML IV SCH ×3 (06:03→22:00)
[2020-02-09] MEDS: FUROSEMIDE 20 MG/2 ML VIAL IV SCH ×2 (06:03→19:03)
--- NOTE | 2020-02-09 07:12 | NUR ---
Report given to TAE Gifford. Patient resting comfortably in bed at this time. No signs of distress noted.
[2020-02-09 08:39] LABS: Basophils # (auto) 0.1 10 ^3/uL (0-0.2); Eosinophils # (auto) 0.2 10 ^3/uL (0-0.8); Neutrophils # (auto) 14.3 10 ^3/uL (1.6-8.6)
[2020-02-09 08:41] LABS: Basophils % (auto) 0.4 % (0.0-2.0); Eosinophils % (auto) 1.4 % (0.0-7.0); Hematocrit 27.6 % (36.0-46.0); Hemoglobin 8.7 g/dL (12.2-16.2); Lymphocytes # (auto) 0.4 10 ^3/uL (0.4-5.4); Lymphocytes % (auto) 2.5 % (10.0-50.0); Mean Corpuscular Hemoglobin 31.5 pg (28.0-32.0); Mean Corpuscular Hgb Conc. 31.4 g/dL (32.0-36.0); Mean Corpuscular Volume 100.3 fL (80.0-100.0); Monocytes # (auto) 0.8 10 ^3/uL (0-1.3); Monocytes % (auto) 5.1 % (0.0-12.0); Neutrophils % (auto) 90.6 % (37.0-80.0); Nucleated Red Blood Cells % 0.2 %; Platelet Count (auto) 97 10^3/uL (140-450); Red Blood Cells 2.75 10^6/uL (4.0-5.20); White Blood Cell 15.8 10^3/uL (4.4-10.8)
[2020-02-09] MEDS: CALCIUM W/VIT D (600MG/400IU) TAB PO SCH ×2 (08:44→18:00)
--- NOTE | 2020-02-09 09:00 | NUR ---
Called [facility] and spoke with Sonam at the transfer Center and stated they have no bed for any transfers
--- NOTE | 2020-02-09 09:15 | NUR ---
02/09/20 Juanjo15 Received a call from Jenny at [facility] and stated she may have a bed for the patient later today, the chart is still being reviewed.
[2020-02-09] MEDS: PANTOPRAZOLE 40 MG/10 ML VIAL INJ IV SCH (09:54)
[2020-02-09] MEDS: LOPERAMIDE HCL 2 MG CAP PO SCH (09:54)
[2020-02-09] MEDS: SODIUM CHLOR 0.9% PF (SALINE LOCK) 10ML VIAL/SYR IV SCH ×2 (09:54→22:00)
[2020-02-09] MEDS: POTASSIUM EFFERVESENT TAB 25 MEQ GT SCH (09:59)
--- NOTE | 2020-02-09 10:10 | NUR ---
02/09/2020 1010 Called [facility] and spoke with Bibiana URIBE who stated they have no beds, Called [facility] [phone] and spoke with Marino who stated they have no beds, Called [facility] [phone] and spoke with Hunter and stated they have no beds for transfers, Called [facility] [phone] and spoke with Juno URIBE and stated they have no staff, and no beds.
[2020-02-09] MEDS ORDERED: SODIUM PHOSPHATES 24 MEQ in SODIUM CHL 0.9% 100 ML IV ONE (10:15)
--- NOTE | 2020-02-09 10:59 | NUR ---
DR ECHOLS AT BEDSIDE, EXAMINED PATIENT AND SPOKE WITH HER. FULL LIQUID DIET ORDERED. Addendum: 02/09/20 at 1101 by Balta Saravia RN PER DR ECHOLS RN TO CHECK WITH MOQATOSH WHEN TO START WEANING TPN, DIETARY AWARE OF DIET ORDER CHANGE
--- NOTE | 2020-02-09 11:15 | NUR ---
02/09/20 1115 Received a call from Jenny at [facility] and stated the Vascular Surgeon didn't feel this was an emergency and he would see the patient as an outpatient for the surgery and they have no bed for the patient. Surgeon name is Dr Caleb Rock [address] [place] [id number], , Called Dr. Rachele Briscoe and made him aware and gave him the md's information.
--- NOTE | 2020-02-09 11:55 | NUR ---
DR FARIAS AT BEDSIDE, AWARE OF RECENT LOW BP, OK TO GIVE NS 250 ML FLUID BOLUS.
[2020-02-09] MEDS: ACCU-CHEK COMFORT CURVE STRIP VI SCH ×2 (12:00→18:00)
[2020-02-09] MEDS: InsuLIN REG 1unit/0.01ml Soln (100units/ml) SC SCH ×2 (12:00→18:00)
[2020-02-09] MEDS ORDERED: DEXTROSE (50%) 50ML SYRG IV SCH (12:00)
[2020-02-09] MEDS ORDERED: SODIUM CHLORIDE 0.9% 250 ML IV ONE (12:30)
--- NOTE | 2020-02-09 12:36 | NUR ---
Nutrition Followup Notes Pt wt is 68.9 kg. Pt is extubated, awake with no relatives at bedside when rounded this morning. Pt diet is advanced to Full Liquid diet today at lunch, and if well tolerated, TPN will be discontinued per RN. Pt is with TPN @ 60ml/hr, providing 1500 kcals, 70g protein and 1220 NPCs. Pt with inadequate energy intake from PN support as it meets 84-101% of est caloric needs. Protein intake from PN support is adequate as it meets 74-99% of est protein needs. Pt stated she feels good. Will continue to monitor PO status, skin status, pertinent labs and weight trends. Will f/u in 2-3 days. Est Energy needs: 4835-7866 (25-30 kcal/kgBW) d/t pt respiratory distress Est Protein needs: 71-95 gms/day (1.2-1.6 gm/kgBW) d/t pt respiratory distress Will continue to monitor and reassess prn. LABS: Gluc 107 H, CA 7.1 L, ALB 2.0 L GI: Pt had no BM today per RN doc. BS: 13 mod risk. Refer to wound assessment report for full details. PES: 1) Increased nutrient needs r/t pt with no PO intake aeb pt is sedated, intubated with mech vent, NPO 2) Altered nutrition related lab values r/t current medical condition aeb hypocalcemia, mod hypoalbuminemia Comments Will continue to monitor PO status, skin status, pertinent labs and weight trends. Will f/u in 2-3 days. 1) Continue to closely monitor NPO status. 2) If pt remains NPO for the next 48 hours, consider EN nutrition support Osmolite 1.2 @ 60 ml/hr goal rate as tolerated and per MD approval 3) Gradually advance pt to oral Cardiac 2gNa,low fat,low chol diet when medically feasible and as tolerated 4) Consider a daily MVI with 500mg VitC bid 5) Continue current plan of care
--- NOTE | 2020-02-09 12:44 | NUR ---
Received a call from from DR.L Briscoe stating he ad spoke with DR Basilio at [facility] and he had accepted the patient
--- NOTE | 2020-02-09 12:50 | NUR ---
Called [facility] and spoke Genia the transfer nurse and gave updated information on the patient stated she was going to send a return agreement for the patient
--- NOTE | 2020-02-09 14:30 | NUR ---
Telemetry admit from ICU JESS PAGAN admitted to Telemetry unit after SBAR received from WILL CALL ORDER CLERK Balta. Patient oriented to Dottie Leavitt RN primary RN, unit, room, bed, and unit policies regarding patient care and visiting hours. Patient now on continuous telemetry monitoring, tele box # 41 and telemetry reading on arrival to unit is a.fib 120 bpm. Patient placed on bedside oxygen, weighed by bedscale and encouraged to call if they need something. All questions and concerns addressed, patient verbalized understanding.
--- NOTE | 2020-02-09 15:13 | NUR ---
Spoke with DR Johnathan Briscoe and gave permission for me to sign the return agreement for the patient, regarding the transfer Addendum: 02/09/20 at 1518 by Candy Ruff RN Debbie for the spelling DR Rachele Mann
--- NOTE | 2020-02-09 15:23 | NUR ---
Called [facility] an spoke with Brett, stated the patient is still on will call
[2020-02-09] MEDS ORDERED: HYDROcodone-ACET 10/325MG TAB PO ONE (16:00)
--- NOTE | 2020-02-09 16:00 | NUR ---
SPOKE WITH DAUGHTER JESS AND PER JESS SHE WOULD LIKE TO SPEAK TO DR. SAENZ BEFORE AGREEING TO TRANSFER.
--- NOTE | 2020-02-09 16:15 | NUR ---
INFORMED [employer] SALES CONSULTANT RENUKA GRIMM AND DR. SAENZ ARE DISCUSSING PATIENT'S DISCHARGE AND PER MD SAENZ HE WILL CALL ME REGARDING TRANSFER
--- NOTE | 2020-02-09 16:25 | NUR ---
Faxed to [facility] face sheet, transfer order, and return agreement for the patient if she is transferred
--- NOTE | 2020-02-09 16:30 | NUR ---
SPOKE WITH DR. SAENZ AND PER FAMILY AGREED TO DISCHARGE PATIENT ON HOME HOSPICE. INFORMED SHIP SURVEYOR
--- NOTE | 2020-02-09 16:36 | NUR ---
Called [facility] and cancelled the transfer and also called [facility] and cancelled the transport, patient going home on Hospice
--- NOTE | 2020-02-09 16:36 | NUR ---
re-assessment Per consult hospice-home. I called patients daughter Shruti and informed her of hospice consult. I offered Shruti a list of medicare providers. Per Shruti she wants [facility] to be contacted. order has been sent to [facility]. Per Jina at [facility] she will be contacting Shruti daughter. Addendum: 02/09/20 at 1640 by Michelle Garcia Amended: Links added.
--- NOTE | 2020-02-09 16:48 | NUR ---
PER SKIP HOIST ENGINEER MIGUEL PATIENT WAS ACCEPTED BY [facility].
--- NOTE | 2020-02-09 17:48 | NUR ---
SPOKE WITH DR. SAENZ REGARDING STEPHENS AND RECTAL TUBE AND PICC LINE. PER MD DELAROSA STEPHENS AND RECTAL TUBE AND TITRATE TPN.
--- NOTE | 2020-02-09 19:41 | NUR ---
CLOSING SHIFT NOTE ENDORSED CARE TO HOSPITAL PHARMACY TECHNICIAN RN BONIFACIO. PATIENT HAS NO S/S OF DISTRESS/SOB OR PAIN AT THIS TIME. INFORMED BONIFACIO TRANSPORTATION WILL ARRIVE AT 2230
[2020-02-09] MEDS ORDERED: TPN PER PHARMACY IV NR ×11 (20:00)
--- NOTE | 2020-02-09 20:00 | NUR ---
Opening Shift Note Assumed care of patient, awake and alert. No S/S of distress/SOB or pain. Insructed on POC and to call for assist PRN, will continue to monitor for changes Q1hr and PRN. tpn titrating down and rn endorsed titration down to 15 ml per hr.
--- NOTE | 2020-02-09 21:00 | NUR ---
Respiratory note: PT ASSESSED FOR PRN MED NEB TX. HR 94, RR 14, SPO2 99%. NO S/S OF ANY RESPIRATORY DISTRESS NOTED. ADVISED PT TO CALL TO IF TX IS NEEDED.
--- NOTE | 2020-02-09 22:00 | NUR ---
spoke to deepak from hospice and was notified [facility] will provide oxygen and home oxygen is ready delivered home.
--- NOTE | 2020-02-09 23:25 | NUR ---
Discharge instructions given as ordered. Encourage to follow up with PMD as instructed. All questions and concerns addressed. Patient verbalized understanding. Medication reconciliation form completed and copy given to patient. Home medications held in Pharmacy returned to patient. PICC IV removed with catheter intact, pressure dressing applied. Douglass catheter removed and rectal tube removed by spencer blair. Telemetry unit returned to ICU. Patient taken to vehicle via gurney with all personal belongings, accompanied by [facility] with oxygen. cellphone with ingot supervisorcrys paperwork given. All picutres taken for wounds. Mrsa swab sent. No distress noted at time of departure. Addendum: 02/09/20 at 2332 by Taye Sears RN tpn was titrated down.
== END 2020-02-09 23:40 | disposition hospice, home (50) | DRG 853 ==
LOC: EDBD 16:16 → ER 16:16 → TELE 16:17 → TELE-WESTW 20:33 → ICU WEST 02-02 18:25 → TELE-CENTR 02-09 14:49
PROVIDERS: ADMIT Hospitalist; ATTEND Hospitalist
PROC: 5A1945Z Respiratory Ventilation, 24-96 Consecutive Hours (ICD-10-PCS; principal; 2020-02-02)
PROC: 0BH17EZ Insertion of Endotracheal Airway into Trachea, Via Natural or Artificial Opening (ICD-10-PCS; 2020-02-02)
PROC: 06HY33Z Insertion of Infusion Device into Lower Vein, Percutaneous Approach (ICD-10-PCS; 2020-02-02)
PROC: 30233N1 Transfusion of Nonautologous Red Blood Cells into Peripheral Vein, Percutaneous Approach (ICD-10-PCS; 2020-02-02)
PROC: 30233K1 Transfusion of Nonautologous Frozen Plasma into Peripheral Vein, Percutaneous Approach (ICD-10-PCS; 2020-02-02)
PROC: B41DYZZ Fluoroscopy of Aorta and Bilateral Lower Extremity Arteries using Other Contrast (ICD-10-PCS; 2020-02-02)
PROC: 04V53DZ Restriction of Superior Mesenteric Artery with Intraluminal Device, Percutaneous Approach (ICD-10-PCS; 2020-02-02)
PROC: 02HV33Z Insertion of Infusion Device into Superior Vena Cava, Percutaneous Approach (ICD-10-PCS; 2020-02-08)
DX: A41.9 Sepsis, unspecified organism (principal); J96.01 Acute respiratory failure with hypoxia; K66.1 Hemoperitoneum; G93.41 Metabolic encephalopathy; R65.21 Severe sepsis with septic shock; I50.31 Acute diastolic (congestive) heart failure; S35.229A Unspecified injury of superior mesenteric artery, initial encounter; J98.11 Atelectasis; D68.9 Coagulation defect, unspecified; I48.20 Chronic atrial fibrillation, unspecified; M86.8X7 Other osteomyelitis, ankle and foot; E03.9 Hypothyroidism, unspecified; D64.9 Anemia, unspecified; I73.9 Peripheral vascular disease, unspecified; R54 Age-related physical debility; E78.5 Hyperlipidemia, unspecified; D69.6 Thrombocytopenia, unspecified; Z20.828 Contact with and (suspected) exposure to other viral communicable diseases; L97.519 Non-pressure chronic ulcer of other part of right foot with unspecified severity; M81.0 Age-related osteoporosis without current pathological fracture; Z79.01 Long term (current) use of anticoagulants; Z79.899 Other long term (current) drug therapy; I87.2 Venous insufficiency (chronic) (peripheral); Y83.8 Other surgical procedures as the cause of abnormal reaction of the patient, or of later complication, without mention of misadventure at the time of the procedure; Y82.9 Unspecified medical devices associated with adverse incidents; Y92.234 Operating room of hospital as the place of occurrence of the external cause; R58 Hemorrhage, not elsewhere classified
CPT/HCPCS: 36415; 36569; 36600; 70450; 71045; 71260; 71275; 73721; 74177; 74178; 75625; 75716; 80048; 80053; 80061; 80202; 81001; 82040; 82607; 82728; 82746; 82805; 82962; 83036; 83605; 83615; 83735; 83880; 84100; 84132; 84443; 84478; 84484; 85007; 85014; 85018; 85025; 85027; 85379; 85610; 85730; 86141; 86850; 86900; 86901; 86920; 87040; 87045; 87076; 87081; 87086; 87427; 87493; 93005; 93306; 93925; 93970; 94003; 95819; 96374; 99152; 99153; 99291; C1769; C1889; C9113; G0378; J0330; J0610; J1100; J2185; J2250; J2405; J2543; J2704; J3430; J3480; J3490; J7060; J7131; Q9967

== ENCOUNTER 2020-02-20 05:40 | Emergency (ER) | payer OTHER ==
[~2020-02-20] VITALS: Ht 170.2 cm; Wt 59.0 kg
[~2020-02-20 05:40] MED LIST: ALEN1TAB32 PO; DIGO0.12 PO; FERR-20 PO; LEVO75TA6 PO; POM PO; PRAV20TA3 PO
[2020-02-20 06:52] LABS: Hematocrit 38.2 % (36.0-46.0); Mean Corpuscular Volume 108.8 fL (80.0-100.0); Red Blood Cells 3.51 10^6/uL (4.0-5.20)
[2020-02-20 06:55] LABS: Hemoglobin 11.6 g/dL (12.2-16.2); Mean Corpuscular Hgb Conc. 30.4 g/dL (32.0-36.0); Platelet Count (auto) 259 10^3/uL (140-450)
[2020-02-20 07:00] LABS: Red Cell Distribution Width 30.9 % (11.8-14.3)
[2020-02-20 07:01] LABS: Basophils % (manual) 0 (0.0-2.0); Blast Cells 0; Eosinophils % (manual) 0 (0-7); Myelocytes % 0; Promyelocytes % 0; Reactive Lymphocytes 0
[2020-02-20 07:07] LABS: Albumin 2.2 g/dL (3.4-5.0); BUN/Creatinine Ratio 61.7; Calcium 7.1 mg/dL (8.5-10.1); Potassium 4.4 mmol/L (3.5-5.1)
[2020-02-20 07:10] LABS: Bilirubin, Total 0.9 mg/dL (0.2-1.0); Total Protein 5.7 g/dL (6.4-8.2)
[2020-02-20 07:19] LABS: INR 2.99 (0.9-1.15); Partial Thromboplastin Time 40.2 sec (23.0-31.2)
[2020-02-20 07:46] LABS: Band Neutrophils % (manual) 2; Lymphocytes % (manual) 3 (10.0-50.0); Metamyelocytes % 1; Monocytes % (manual) 4 (0-12)
[2020-02-20] MEDS ORDERED: cefTRIAXone 1GM/50ML D5W 50 ML IV ONE (08:15)
[2020-02-20 10:32] LABS: Urine Bacteria NONE SEEN /hpf (None Seen); Urine Blood TRACE /uL (Negative); Urine Specific Gravity 1.023 (1.001-1.035); Urine WBC 3 /hpf (0 - 5)
[2020-02-20 11:47] VITALS: BP 146/92
== END 2020-02-20 11:56 | disposition home or self-care (01) ==
LOC: ER 05:40 → EDBD 05:40 → ER 11:56
DX: R04.0 Epistaxis (principal); D64.9 Anemia, unspecified; D72.829 Elevated white blood cell count, unspecified; N39.0 Urinary tract infection, site not specified; E43 Unspecified severe protein-calorie malnutrition
CPT/HCPCS: 36415; 80053; 81001; 85007; 85027; 85610; 85730; 96365; 99285; J7030; 96360